=== PATIENT | male | born 1940 | race Caucasian/White ===

== ENCOUNTER 2020-11-17 15:00 | Outpatient (RCR) | payer OTHER, SELFPAY | END 2020-11-17 23:59 | disposition home or self-care (01) | LOC: ANHAUDIO 15:00 | PROVIDERS: PCP Anesthesiology; Visit Provider Anesthesiology | DX: Z46.1 Encounter for fitting and adjustment of hearing aid (principal) | CPT/HCPCS: 99199; V5014 ==

== ENCOUNTER 2021-03-30 13:30 | Outpatient (RCR) | payer SELFPAY | END 2021-03-30 23:59 | disposition home or self-care (01) | LOC: ANHAUDIO 13:30 | PROVIDERS: PCP Family Medicine; Visit Provider Family Medicine | DX: Z46.1 Encounter for fitting and adjustment of hearing aid (principal) | CPT/HCPCS: 99199 ==

== ENCOUNTER 2021-08-12 14:47 | Outpatient (RCR) | payer OTHER, SELFPAY | END 2021-08-12 23:59 | disposition home or self-care (01) | LOC: ANHAUDIO 14:47 | PROVIDERS: PCP Family Medicine; Visit Provider Family Medicine | DX: Z46.1 Encounter for fitting and adjustment of hearing aid (principal) | CPT/HCPCS: 99199 ==

== ENCOUNTER 2022-01-31 09:43 | Outpatient (RCR) | payer OTHER, SELFPAY | END 2022-01-31 23:59 | disposition home or self-care (01) | LOC: ANHAUDIO 09:43 | PROVIDERS: PCP Family Medicine; Visit Provider Family Medicine | DX: Z46.1 Encounter for fitting and adjustment of hearing aid (principal) | CPT/HCPCS: 99199 ==

== ENCOUNTER → 2023-02-02 12:54 | Outpatient (CLI) | payer OTHER, SELFPAY ==
--- NOTE | ~2023-02-02 | XR_ITS ---
XR knee LT min 4V 02/02/2023 13:14 Indication: Left knee pain Procedure: 4 views left knee Comparison: No prior studies for comparison. Findings: No fracture, subluxation or dislocation. There is a joint effusion. There is atherosclerosi s. No foreign bodies. Impression: 1: Small joint effusion. Reviewed, dictated and finalized at location L. Impression: 1: Small joint effusion.
== END ==
PROVIDERS: PCP Nurse Practitioner Family; Visit Provider Nurse Practitioner Family
DX: M25.462 Effusion, left knee (principal)
CPT/HCPCS: 73564

== ENCOUNTER → 2023-05-11 13:09 | Outpatient (CLI) | payer OTHER, SELFPAY ==
--- NOTE | ~2023-05-11 | XR_ITS ---
EXAMINATION: XR lumbar spine 2-3V DATE: 05/11/2023 13:21 INDICATION: Low back pain TECHNIQUE: Anteroposterior and lateral views of the lumbar spine, and cone-down lateral view of the l umbosacral junction were obtained. COMPARISON: 08/05/2009 FINDINGS: There are laminectomy changes from L1 through L5. Bone alignment is normal. There is no fra cture. There is moderate loss of intervertebral disc space height at L1 to, L4-5, and L5-S1. The vert ebral body heights are maintained. Small degenerative osteophytes project from the anterior endplates of multiple vertebral bodies. There is multilevel severe facet joint osteoarthritis. Calcified ather osclerosis is noted. 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 IMPRESSION: 1. Moderate to severe lumbar spondylosis and L1-L5 laminectomy without acute findings. Reviewed, dictated and finalized at location L. IMPRESSION: 1. Moderate to severe lumbar spondylosis and L1-L5 laminectomy without acute fi ndings.
== END ==
PROVIDERS: PCP Nurse Practitioner Family; Visit Provider Nurse Practitioner Family
DX: M54.50 Low back pain, unspecified (principal); M47.816 Spondylosis without myelopathy or radiculopathy, lumbar region; M96.1 Postlaminectomy syndrome, not elsewhere classified
CPT/HCPCS: 72100

== ENCOUNTER 2023-07-12 15:00 | Outpatient (RCR) | payer OTHER, SELFPAY | END 2023-07-12 23:59 | disposition home or self-care (01) | LOC: ANHAUDIO 15:00 | PROVIDERS: PCP Family Medicine; Visit Provider Family Medicine | DX: Z46.1 Encounter for fitting and adjustment of hearing aid (principal) | CPT/HCPCS: 92593; 99199 ==

== ENCOUNTER 2023-09-05 15:15 | Outpatient (RCR) | payer OTHER, SELFPAY | END 2023-09-05 23:59 | disposition home or self-care (01) | LOC: ANHAUDIO 15:15 | PROVIDERS: PCP Family Medicine; Visit Provider Family Medicine | DX: Z46.1 Encounter for fitting and adjustment of hearing aid (principal) | CPT/HCPCS: V5014 ==

== ENCOUNTER → 2023-10-17 12:37 | Outpatient (CLI) | payer OTHER, SELFPAY ==
--- NOTE | ~2023-10-17 | US_ITS ---
EXAMINATION: US soft tissue LE LT DATE: 10/17/2023 12:53 INDICATION: Posterior left knee pain. Assess for Ji's cyst. TECHNIQUE: Multiple grayscale and Doppler ultrasound images of the region of concern at the left popl iteal fossa were obtained. COMPARISON: 02/02/23 FINDINGS: Scattered nonhemodynamically significant shadowing atherosclerotic plaque along the normal caliber le ft popliteal artery which correspond to calcifications seen on the prior radiographs. No Ji's cyst or other abnormal masses or fluid collections identified at the left popliteal fossa. IMPRESSION: 1. No Ji's cyst or other abnormal masses or fluid collections at the left popliteal fossa. Reviewed, dictated and finalized at location A. 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 No Ji's cyst or other abnormal masses or fluid collections at the left po pliteal fossa.
== END ==
PROVIDERS: PCP Nurse Practitioner Family; Visit Provider Nurse Practitioner Family
DX: M25.562 Pain in left knee (principal)
CPT/HCPCS: 76882

== ENCOUNTER 2024-06-22 21:30 | Inpatient (IN) | payer OTHER, SELFPAY ==
--- NOTE | ~2024-06-22 | MR_ITS ---
EXAMINATION: MR brain/brain stem wo/w con DATE: 06/25/2024 17:02 INDICATION: fall, persistent dizziness TECHNIQUE: Magnetic resonance imaging (MRI) of the brain and brainstem was performed without and with 18 mL MultiHance intravenous contrast. Sequences included sagittal and axial T1-weighted SE, axial d iffusion-weighted FS EPI ASSET, axial T2*-weighted GRE, axial T2-weighted FLAIR Propeller, and axial T2-weighted Propeller. Postcontrast axial and coronal T1-weighted SE was obtained. Apparent diffusion coefficient (ADC) maps were created. COMPARISON: CT brain, CTA brain carotid 06/22/2024. FINDINGS: Small somewhat linear area of restricted diffusion in the [place], to the left of midline (DWI and ADC i mage ). No MRI evidence of hemorrhage or extra-axial collection. No suspicious foci of susceptib ility to suggest prior intraparenchymal hemorrhage. Moderate patchy white matter hyperintensity, like ly representing moderate small vessel ischemic disease . Mild generalized parenchymal volume loss. The basilar cisterns are patent. Flow voids are preserved . Mild ethmoid mucosal thickening, otherwise the paranasal sinuses are within normal limits. Bilatera l lens replacements. Globes and orbital contents are otherwise within normal limits. No abnormal enha ncement. IMPRESSION: Small focal acute infarct in the [place]. Reviewed, dictated and finalized at location K.
--- NOTE | ~2024-06-22 | CT_ITS ---
EXAMINATION: CT cervical spine wo con DATE: 06/22/2024 22:58 INDICATION: Neck pain after fall TECHNIQUE: Computed tomography (CT) of the cervical spine was performed without intravenous contrast. The dose-length product was 435 mGy-cm. Automated exposure control and iterative reconstruction tech nique were employed. COMPARISON: None FINDINGS: Craniovertebral junction normal. Vertebral body heights are maintained. There is disc narro wing at C3-4 with retrolisthesis. There is disc narrowing at C6-7. There is mild multilevel uncinate and facet hypertrophy. Odontoid process is normal. No evidence for perched facet. No paraspinal soft tissue abnormality. Lung apices are normal. No acute fracture or traumatic malalignment. IMPRESSION: 1. No acute abnormality of the cervical spine. 2: Severe cervical spondylosis. Reviewed, dictated and finalized at location B.
--- NOTE | ~2024-06-22 | CT_ITS ---
EXAMINATION: CT brain wo con DATE: 06/22/2024 22:57 INDICATION: Status post fall. Patient on blood thinners. TECHNIQUE: Computed tomography (CT) of the head was performed without intravenous contrast. The dose- length product was 681.00 mGy-cm. Automated exposure control and iterative reconstruction technique w ere employed. COMPARISON: None FINDINGS: Generalized atrophy. There are scattered severe periventricular and subcortical white matte r changes, most likely related to small vessel ischemic disease (microangiopathy). No ventriculomegal y or midline shift. Basilar cisterns are patent. Paranasal sinuses and mastoids are pneumatized. No d epressed skull fractures. Midline sagittal images are unremarkable. IMPRESSION: 1. No acute intracranial abnormality. 2: Chronic age-related findings. Reviewed, dictated and finalized at location B.
--- NOTE | ~2024-06-22 | CT_ITS ---
EXAMINATION: CTA brain carotid DATE: 06/23/2024 07:34 CDT INDICATION: Positional ataxia. Head trauma. Patient on aliquots. TECHNIQUE: Computed tomographic angiography (CTA) of the head was performed without and with 100 mL O mnipaque-350 intravenous contrast. CTA of the neck was performed with intravenous contrast. The dose- length product was 1192.62 mGy-cm. Maximum intensity projection and volume rendered 3D-reconstruction s were created by the technologist on a separate workstation. COMPARISON: No prior studies for comparison. . FINDINGS: HEAD CTA: Normal intracranial arteries without significant stenosis, occlusion or aneurysm. Dominant left vertebral artery. NECK CTA: There is atherosclerosis of the common carotid and proximal internal carotid arteries. No s ignificant stenosis or occlusion. There is 43% stenosis of the proximal right internal carotid artery relative to normal distal artery lumen diameter (NASCET criteria). There is 9% stenosis of the proximal left internal carotid artery r elative to normal distal artery lumen diameter. No cervical lymphadenopathy. No abnormality of the mu cosal space. Lung apices are unremarkable. IMPRESSION: 1: No significant vascular abnormality of the head or neck. Reviewed, dictated and finalized at location B.
[2024-06-22 21:42] VITALS: BP 167/85; PULSE 68; RESP 20; TEMP 36.6; O2SAT 97
[2024-06-22] MEDS: ONDANSETRON INJ 4 MG/2 ML VIAL IV PUSH (23:33)
[2024-06-22] MEDS: LACTATED RINGERS 1,000 ML 999 ML IV CONT (23:37)
[2024-06-22] MEDS: MECLIZINE HCL 25 MG TABLET PO (23:38)
[2024-06-22 23:40] LABS: Glucose Point of Care 187 mg/dl (65-105)
[2024-06-22 23:40] LABS: Estimated CRCL calculation 46 ml/min; Estimated Glomerular Filt Rate > 60
[2024-06-23] VITALS (10 sets, daily range): BP systolic 107–140; BP diastolic 61–81; PULSE 58–76; RESP 16–22; TEMP 36.2–36.6; O2SAT 94–100
[2024-06-23 00:18] LABS: Basophils Absolute Auto 0.1 K/mm3 (0.0-0.1); Basophils Percent Auto 0.7 % (0.2-1.2); Eosinophils Absolute Auto 0.2 K/mm3 (0-0.3); Eosinophils Percent Auto 2.1 % (0-4.4); Hematocrit 38.3 % (42.0-52.0); Hemoglobin 12.8 g/dL (14.0-18.0); Immature Granulocyte Absolute 0.05 K/mm3 (0.00-0.031); Immature Granulocyte Percent A 0.5 % (0-0.5); Lymphocytes Absolute Auto 2.58 K/mm3 (0.9-3.2); Lymphocytes Percent Auto 26.7 % (18.3-44.2); Mean Corpuscular HGB Conc 33.4 g/dl (32-36); Mean Corpuscular Hemoglobin 31.1 pg (26-34); Mean Platelet Volume 12.2 fl (7.4-10.4); Monocytes Absolute Auto 1.1 K/mm3 (0.1-0.6); Monocytes Percent Auto 11.5 % (2.6-8.5); Neutrophils Absolute Auto 5.6 K/mm3 (1.3-6.7); Neutrophils Percent Auto 58.5 % (45.5-73.1); Platelet Count Result 192 k/mm3 (150-375); Red Blood Count 4.12 M/mm3 (4.6-6.20); Red Cell Distribution Width 13.2 % (11.5-14.5); White Blood Count 9.7 K/mm3 (4.5-10.0)
[2024-06-23 00:28] LABS: Anion Gap 13 mmol/L (4-12); Blood Urea Nitrogen 27 mg/dL (9-20); Calcium 9.2 mg/dL (8.4-10.2); Carbon Dioxide 24 mmol/L (22-30); Chloride 99 mmol/L (98-107); Estimated CRCL calculation 50 ml/min; Estimated Glomerular Filt Rate > 60; Glucose 174 mg/dL (65-110); Potassium 3.2 mmol/L (3.4-5.0); Sodium 136 mmol/L (137-145)
[2024-06-23 00:29] LABS: INR 1.4; Prothrombin Time 18.1 Seconds (11.1-14.7)
[2024-06-23 00:30] LABS: Partial Thromboplastin Time 29.9 Seconds (22.3-36.8)
[2024-06-23 00:39] LABS: Troponin I < 0.012 ng/mL (0.000-0.034)
--- NOTE | 2024-06-23 00:46 | ECG_ITS ---
Test Date: 2024-06-23 00:05:56 Measurements Intervals [place] Rate: 77 P: 0 DC: 0 QRS: 29 QRSD: 98 T: 58 QT: 395 QTc: 448 Interpretive Statements ATRIAL FIBRILLATION LOW QRS VOLTAGE IN LIMB LEADS ST-T WAVE ABNORMALITY IN ANTEROLATERAL LEADS- CONSIDER ISCHEMIA BASELINE ARTIFACT- I, II, III, AVL, AVF ABNORMAL ECG No previous ECG available for comparison Electronically Signed On 06-23-2024 09:07:16 CDT by Laith Wynn D.O.
--- NOTE | 2024-06-23 00:50 | ED.FALL ---
HPI - Fall General Chief Complaint: Fall Stated Complaint: Fall Time Seen by Provider: 06/22/24 21:55 History of Present Illness HPI Narrative: This is an 84-year-old male with past medical history including atrial fibrillation on Xarelto, hypertension, hyperlipidemia. Today patient presents to the ED for evaluation after a fall at ground level height with head trauma on concrete. He states he did not lose consciousness but was feeling extremely dizzy prior to the fall and thinks that is what caused him to trip over a step in his garage. He landed on the ground hit his head. Was able to get up with some assistance but called EMS for transport. On initial encounter patient states that he has a headache severe vertiginous symptoms especially when looking to the right. He states he sometimes gets dizzy at baseline but this is the worst he has ever experienced. States that was onset prior to the fall today. Has been taking his Xarelto without difficulty and no other recent injuries, illnesses, medication changes. Did have recent primary care provider visit where had some labs workup and urinalysis for concerns of worsening fatigue over the last few weeks and anemia. Patient presently denies any vision changes, abdominal pain, back pain, chest pain, shortness a breath, weakness or fatigue. He states he feels extremely dizzy and nauseous and has vomited several times with retching. Nausea vomiting occurred after the fall. Related Data Home Medications Medication Instructions Recorded Confirmed hydrochlorothiazide 25 mg tablet 25 mg PO DAILY 02/10/21 06/18/24 multivitamin 1 tablet PO DAILY 02/10/21 06/18/24 rivaroxaban 20 mg tablet (Xarelto) 20 mg PO DAILY 02/10/21 06/18/24 blood sugar diagnostic (Blood 06/08/21 06/18/24 Glucose Test strips) blood-glucose meter 06/08/21 06/18/24 lancets 31 gauge 06/08/21 06/18/24 atorvastatin 40 mg tablet 40 mg PO DAILY 09/07/21 06/18/24 ubidecarenone-omega 3-vit E 25 1 cap PO DAILY 01/25/22 06/18/24 mg-150 (90-60) mg-200 unit capsule (Co [id number] E-Fish Oil) cholecalciferol (vitamin D3) 25 25 mcg PO DAILY 07/25/22 06/18/24 mcg (1,000 unit) capsule ezetimibe 10 mg tablet 10 mg PO DAILY 05/11/23 06/18/24 lisinopril 40 mg tablet mg PO DAILY 03/21/24 06/18/24 Allergies Allergy/AdvReac Type Severity Reaction Status Date / Time Sulfa (Sulfonamide AdvReac Mild rash Verified 04/30/24 07:59 Antibiotics) Review of Systems Review of Systems: As reviewed above in HPI [facility] Past Medical History Medical History Atrial fib/flutter, transient BMI 28.0-28.9,adult Chronic fatigue Elevated TSH Eustachian tube dysfunction Hyperlipidemia Hypertension Low Back Pain Otitis media Type 2 diabetes mellitus without complications Surgical History Surgical History History of back surgery History of hip surgery History of laparoscopic appendectomy History of tonsillectomy and adenoidectomy Family History Family History Father , cancer Multiple myeloma Mother Dementia Cancer Sibling , cancer No problems noted. Sibling No problems noted. Social History Social History Smoking status: Never smoker Tobacco type: cigarettes Second hand tobacco smoke exposure: Yes Alcohol intake: current Substance use: never Substance use type: does not use Do You Feel Safe in your Home?: Yes Lack of Transportation: No Lack of Food: Never True Current Housing: I Have Housing Concerned About Future Housing: No Difficulty Paying Gas/Electric Bills: No Difficulty Paying for Meds: No Currently Unemployed: No Education: Trade/Vocational Certificate Diff
[2024-06-23 03:02] LABS: Troponin I < 0.012 ng/mL (0.000-0.034)
--- NOTE | 2024-06-23 03:34 | ECG_ITS ---
Test Date: 2024-06-23 03:34:41 Measurements Intervals [place] Rate: 83 P: 0 MT: 0 QRS: 3 QRSD: 94 T: 64 QT: 417 QTc: 490 Interpretive Statements ATRIAL FIBRILLATION ST-T WAVE ABNORMALITY IN ANTEROLATERAL LEADS- CONSIDER ISCHEMIA ABNORMAL ECG Compared to ECG 06/23/2024 00:05:56 NO SIGNIFICANT CHANGE Electronically Signed On 06-23-2024 09:14:13 CDT by Laith Wynn D.O.
[2024-06-23] MEDS: diazePAM INJ (*CRX) 10 MG/2 ML SYRINGE 2.5 MG IV PUSH ×3 (06:13→20:06)
[2024-06-23] MEDS: POTASSIUM CHLORIDE INJ 40 MEQ in SODIUM CHLORIDE 0.9% IV 500 ML 130 MEQ IVPB (07:37)
--- NOTE | 2024-06-23 13:17 | ADMGEN ---
This patient, Juan M Jimenez, was admitted to 3 [facility] Surg Room 323-01. Patient/family oriented to hospital policies and general routines including ID bracelet, bed and alarms, visiting hours, pain management, procedures, bathroom and other care routines, personal items, smoking policy, room service/diet, and visiting hours. Information on how to activate the Rapid Response Team has been discussed. Patient/Family are encouraged to report perceived risks to care and to ask questions if they do not understand what they are told or what they should do.
--- NOTE | 2024-06-23 15:37 | PM.IMHP ---
H&P: HPI History of Present Illness Date/Time: 06/23/24 15:37 Chief Complaint: Fall Narrative: 84yo male with AFib on Xarelto, HTN and HLD here after sustaining a fall. Patient takes Xarelto but not on ASA or plavix. Patient has had cough and cold symptoms recently and has been taking Delsum up until the day of admission. Patient was celebrating his birthday and he did have 1 alcoholic drink. Later in the day while walking up a few steps from his garage to his house, he missed a step and fell backwards striking the back of his head. Did not lose consciousness. He was able to be helped up. He denies any chest pain, shortness a breath, palpitations or dizziness prior to the event. Does have left knee chronic pain and favors this leg. Family also state patient has an unsteady gait and uses a cane at times. No recent changes in medications. No other new [id number]-nic-zdvauva medications. He has been having fatigue recently and his primary care doctor has started an evaluation for this. He was feeling well prior to the fall. His only complaint from a review of systems standpoint was a mild lingering cough that was non productive. After fall, patient denies headache or vision changes. He does feel dizziness he describes as lightheadedness but denies room spinning dizziness. He has been nauseous with vomiting. The nausea and vomiting is worse with movement. Because of the fall with dizziness, patient contacted EMS and was brought to the emergency room for evaluation In the ED, patient was hemodynamically stable. Hgb 12.8 otherwise CBC normal. INR 1.4. Sodium 136 and potassium 3.2. BUN 27 with Cr 1.0. Troponin negative. CTA of the head and neck showing no significant vascular abnormalities. CT cervical spine showing no acute abnormalities. CT head also showing no acute abnormalities. Recent UCx (06/18/24) was negative. EKG showing AFib with ST-T wave changes anterolateral leads. Repeat EKG showing no change. He was treated with meclizine, LR, Zofran and Valium., Potassium was replaced. He was admitted for further care. Review of Systems Review of Systems: All systems reviewed & are unremarkable except as noted in HPI and below PMFSH Past Medical History Medical History Atrial fib/flutter, transient BMI 28.0-28.9,adult Chronic fatigue Elevated TSH Eustachian tube dysfunction Hyperlipidemia Hypertension Low Back Pain Otitis media Type 2 diabetes mellitus without complications Surgical History Surgical History History of back surgery History of hip surgery History of laparoscopic appendectomy History of tonsillectomy and adenoidectomy Family History Family History Father , cancer Multiple myeloma Mother Dementia Cancer Sibling , cancer No problems noted. Sibling No problems noted. Social History Social History (Updated 06/23/24 @ 16:41 by Ravi Barry MD) Social History: Smoked up to 3ppd x 30+ years but quit 35yrs ago. Rare alcohol use Lives alone Code status - DNR Surrogate decision makers - his 2 dtrs Smoking status: Former smoker Tobacco type: cigarettes Second hand tobacco smoke exposure: Yes Alcohol intake: never Substance use: never Substance use type: does not use Do You Feel Safe in your Home?: Yes Lack of Transportation: No Lack of Food: Never True Current Housing: I Have Housing Concerned About Future Housing: No Difficulty Paying Gas/Electric Bills: No Difficulty Paying for Meds: No Currently Unemployed: No Education: Don't Know Difficulty w/ Childcare or Family Care: No Living arrangements: alone Occupation/Education: retired 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
[2024-06-23] MEDS: METOPROLOL TARTRATE 25 MG TABLET PO (20:06)
[2024-06-23 20:32] LABS: Glucose Point of Care 180 mg/dl (65-105)
[2024-06-23] MEDS: MECLIZINE HCL 25 MG TABLET PO (21:04)
[2024-06-24] VITALS (10 sets, daily range): BP systolic 136–169; BP diastolic 61–84; PULSE 55–111; RESP 12–17; TEMP 36.1–37.1; O2SAT 92–95
[2024-06-24] MEDS: diazePAM INJ (*CRX) 10 MG/2 ML SYRINGE 2.5 MG IV PUSH ×2 (03:44→11:42)
[2024-06-24] MEDS: LEVOTHYROXINE SODIUM 50 MCG TABLET PO (05:45)
--- NOTE | 2024-06-24 06:00 | ECHO_ITS ---
Patient Info Name: Juan M Jimenez Age: 84 years : 1940 Gender: Male Ht: 69 in Wt: 189 lbs BSA: 2.06 m2 HR: 61 bpm BP: 169 / 72 mmHg Heart Rhythm: Atrial Fibrillation Technical Quality: Fair Exam Date: 06/24/2024 9:54 AM Exam Location: Echo Lab Patient Status: Inpatient Admit Date: 06/23/2024 Staff Ordering Physician: Teo Reddy MD Clinical Director: Maurisio Hudson [facility] Attending Provider: Cesilia Cox DO Referring Physician: Maureen HARRISON; Exam Type: CA echo doppler color flow Study Info Indications I48.1 - Persistent atrial fibrillation - ST Depression on ECG Complete two-dimensional, color flow and Doppler transthoracic echocardiogram is performed. Summary 1. Complete two-dimensional, color flow and Doppler transthoracic echocardiogram is performed. 2. Left ventricular chamber dimension is normal. 3. Left ventricular systolic function is normal, estimated at 60-65%. 4. The left ventricular diastolic function is normal. 5. E/e' 8 is minimally elevated. 6. Atrial fibrillation. 7. Left atrial chamber dimension is severely enlarged. 8. Right atrial chamber dimension is severely enlarged. 9. There is moderate aortic valve sclerosis. 10. There is mild aortic valve stenosis with a peak velocity of 153 cm/s, mean gradient of 4 mmHg, and aortic valve area of 1.5 cm2. 11. The mitral valve has moderately calcified annulus. 12. There is mild to moderate mitral valve regurgitation. 13. There is mild to moderate tricuspid valve regurgitation. 14. No pulmonary hypertension, estimated pulmonary arterial systolic pressure is 37 mmHg. 15. There is trace pulmonic regurgitation. Left Ventricle E/e' 8 is minimally elevated. Atrial fibrillation. Left ventricular chamber dimension is normal. Left ventricular systolic function is normal, estimated at 60-65%. The left ventricular diastolic function is normal. Right Ventricle Right ventricular chamber dimension is normal. Right ventricular systolic function is normal. Left Atria Left atrial chamber dimension is severely enlarged. Right Atria Right atrial chamber dimension is severely enlarged. Aortic Valve The aortic valve is trileaflet. There is moderate aortic valve sclerosis. There is mild aortic valve stenosis with a peak velocity of 153 cm/s, mean gradient of 4 mmHg, and aortic valve area of 1.5 cm2. There is no aortic valve regurgitation. Pulmonic Valve There is trace pulmonic regurgitation. Mitral Valve The mitral valve has moderately calcified annulus. There is no mitral valve stenosis. There is mild to moderate mitral valve regurgitation. Tricuspid Valve There is mild to moderate tricuspid valve regurgitation. No pulmonary hypertension, estimated pulmonary arterial systolic pressure is 37 mmHg. Pericardium/Pleural There is no pericardial effusion. Inferior Vena Cava Normal inferior vena cava with >50% collapse upon inspiration consistent with normal right atrial pressure, 5 mmHg. Aorta The aortic root size at the sinus of Valsalva is normal. Left Ventricular Outflow Tract Name Value Normal LVOT 2D LVOT Diameter 2.1 cm LVOT Doppler LVOT Peak Gradient 2 mmHg LVOT Mean Gr
[2024-06-24 06:30] LABS: Hematocrit 38.2 % (42.0-52.0); Immature Platelet Fraction Pct 4.8 % (0.9-11.2); Mean Corpuscular Hemoglobin 31.8 pg (26-34); Mean Corpuscular Volume 93.4 fl (80-100); Mean Platelet Volume 10.6 fl (7.4-10.4); Platelet Count Result 142 k/mm3 (150-375); Red Blood Count 4.09 M/mm3 (4.6-6.20); Red Cell Distribution Width 13.2 % (11.5-14.5)
[2024-06-24 06:40] LABS: Alanine Aminotransferase 12 U/L (6-50); Albumin Level 3.8 g/dL (3.5-5.1); Alkaline Phosphatase 66 U/L (38-126); Anion Gap 9 mmol/L (4-12); Aspartate Amino Transferase 31 U/L (17-59); Bilirubin,Total 1.1 mg/dL (0.2-1.3); Blood Urea Nitrogen 21 mg/dL (9-20); Calcium 9.1 mg/dL (8.4-10.2); Carbon Dioxide 28 mmol/L (22-30); Chloride 99 mmol/L (98-107); Creatine Kinase 57 U/L (55-170); Estimated CRCL calculation 62 ml/min; Estimated Glomerular Filt Rate > 60; Glucose 152 mg/dL (65-110); Potassium 3.8 mmol/L (3.4-5.0); Sodium 136 mmol/L (137-145)
[2024-06-24 08:14] LABS: Glucose Point of Care 162 mg/dl (65-105)
[2024-06-24] MEDS: METOPROLOL TARTRATE 25 MG TABLET PO ×2 (08:55→19:55)
[2024-06-24] MEDS: CHOLECALCIFEROL 1,000 UNITS TABLET 1000 UNITS PO (08:55)
[2024-06-24] MEDS: EZETIMIBE 10 MG TABLET PO (08:55)
[2024-06-24] MEDS: MULTIVITAMINS THERAPEUTIC TAB (*BKC) 1 TABLET PO (08:55)
[2024-06-24] MEDS: FERROUS SULFATE 325 MG TABLET DR PO (08:55)
[2024-06-24] MEDS: ATORVASTATIN 40 MG TABLET PO (08:55)
[2024-06-24 11:46] LABS: Glucose Point of Care 174 mg/dl (65-105)
--- NOTE | 2024-06-24 12:29 | PM.IMPN ---
Progress Note: A&P Assessment and Plan (1) Fall: Code(s): W19.XXXA - Unspecified fall, initial encounter Status: Acute Assessment and Plan: Patient had a fall resulting in a closed head injury and probably concussion with the dizziness and nausea. CT head showing no acute abnormalities. CTA of the head and neck showing no significant vascular abnormalities. CT cervical spine showing no acute abnormalities. Labs are unrevealing. Recent B12, folate normal. TSH mildly elevated at 5.77. VitD low at 21. Echo showing EF 60-65%, normal diastolic fxn, Biatrial enlargement, mild , mild-mod TR/MR. Suspect patient with chronic unsteady gait made worse with cough medication and alcohol. Patient on Xarelto at home. Monitor for worsening symptoms with neuro checks PT/OT. (2) CHI (closed head injury): Code(s): S09.90XA - Unspecified injury of head, initial encounter Status: Acute Assessment and Plan: As above. (3) Dizzy: Code(s): R42 - Dizziness and giddiness Status: Acute Assessment and Plan: Patient complaining of lightheadedness. He has Valium as needed. Related to the fall Better today As above (4) Intractable nausea and vomiting: Code(s): R11.2 - Nausea with vomiting, unspecified Status: Acute Assessment and Plan: Patient with n/v worse with movement. Was able to have patient roll to his side and he tolerated this well. Zofran prn Improved. Continue to follow Add supplements (5) Atrial fibrillation: Qualifiers: Atrial fibrillation type: longstanding persistent Qualified Code(s): I48.11 - Longstanding persistent atrial fibrillation Code(s): I48.91 - Unspecified atrial fibrillation Status: Acute Assessment and Plan: Patient with chronic AFib. EKG showing AFib with ST-T wave changes anterolateral leads. Repeat EKG showing no change. Echo as above Placed on tele showing controlled heart rate with occasional 2sec pause. Continue metoprolol. Continue to hold Xarelto but will resume tomorrow if remains stable. (6) Hypertension: Qualifiers: Hypertension type: unspecified Qualified Code(s): I10 - Essential (primary) hypertension Code(s): I10 - Essential (primary) hypertension Status: Acute Assessment and Plan: BP elevated at times but otherwise has been well controlled. Consider transient HoTN as the etiology of his fall. BUN higher a few days ago (BUN/Cr >20) so may also be dehydrated We resumed metoprolol at lower dose but held lisinopril and HCTZ. Received a liter of fluid in the ED BUN trending down. Add back lisinopril. (7) Type 2 diabetes mellitus without complications: Code(s): E11.9 - Type 2 diabetes mellitus without complications Status: Acute Assessment and Plan: A1c 7.4%. The patient's blood glucose was reviewed on 06/24 Glucose remains reasonably well controlled. Continue AccuCheks covering with sliding scale. Hypoglycemia protocol available as needed. Continue to monitor. Holding metformin and dapagliflozin. Plan DVT prophylaxis - SCDs Code status - DNR per patient wishes; family in the room support his decision Subjective Date/time seen: 06/24/24 12:29 Interval history: 84yo male with AFib on Xarelto, HTN and HLD here after sustaining a fall. Dizziness is better. Nausea improved. Ate okay this morning but not much since has decreased appeitie. Exam Narrative: AF 96.9 169/72 64 13 95%ra Gen - NARD Chest - lungs clear anteriorly CV - irregularly irregular. Tele showing occasional up to 2 sec pauses. Abd - Soft, NT/ND, Positive BS Ext - No pedal edema Psych - Nml mood and affect Skin - Warm and dry Objective Data Vital Signs Vital Signs: Vital Signs - 24 hr 06/23/24 12:36 06/23/24 14:00 06/23/24 16:03 Temperature 97.9 F 97.1 F L Pulse Rate 65 61 66 Respiratory Rate 18 18 Bloo
[2024-06-24] MEDS: lisinopriL 20 MG TABLET PO (12:50)
[2024-06-24 16:43] LABS: Glucose Point of Care 165 mg/dl (65-105)
[2024-06-24 19:28] LABS: Glucose Point of Care 204 mg/dl (65-105)
[2024-06-24] MEDS: ONDANSETRON INJ 4 MG/2 ML VIAL IV PUSH (19:55)
[2024-06-25] VITALS (10 sets, daily range): BP systolic 110–152; BP diastolic 44–90; PULSE 45–86; RESP 14–20; TEMP 36.1–36.9; O2SAT 93–100
[2024-06-25] MEDS: LEVOTHYROXINE SODIUM 50 MCG TABLET PO (06:27)
[2024-06-25] MEDS: ONDANSETRON INJ 4 MG/2 ML VIAL IV PUSH ×2 (06:27→11:19)
[2024-06-25 07:39] LABS: Anion Gap 7 mmol/L (4-12); Blood Urea Nitrogen 19 mg/dL (9-20); Calcium 9.5 mg/dL (8.4-10.2); Carbon Dioxide 31 mmol/L (22-30); Chloride 99 mmol/L (98-107); Estimated CRCL calculation 56 ml/min; Estimated Glomerular Filt Rate > 60; Glucose 151 mg/dL (65-110); Potassium 3.9 mmol/L (3.4-5.0); Sodium 137 mmol/L (137-145)
[2024-06-25 07:42] LABS: Glucose Point of Care 161 mg/dl (65-105)
[2024-06-25] MEDS: FERROUS SULFATE 325 MG TABLET DR PO (08:08)
[2024-06-25] MEDS: METOPROLOL TARTRATE 25 MG TABLET PO (08:08)
[2024-06-25] MEDS: ATORVASTATIN 40 MG TABLET PO (08:08)
[2024-06-25] MEDS: lisinopriL 20 MG TABLET PO (08:08)
[2024-06-25] MEDS: MULTIVITAMINS THERAPEUTIC TAB (*BKC) 1 TABLET PO (08:08)
[2024-06-25] MEDS: EZETIMIBE 10 MG TABLET PO (08:08)
[2024-06-25] MEDS: CHOLECALCIFEROL 1,000 UNITS TABLET 1000 UNITS PO (08:08)
[2024-06-25 11:44] LABS: Glucose Point of Care 182 mg/dl (65-105)
--- NOTE | 2024-06-25 15:32 | PM.IMPN ---
Progress Note: A&P Assessment and Plan (1) Fall: Code(s): W19.XXXA - Unspecified fall, initial encounter Status: Acute Assessment and Plan: Patient had a fall resulting in a closed head injury and probably concussion with the dizziness and nausea. CT head showing no acute abnormalities. CTA of the head and neck showing no significant vascular abnormalities. CT cervical spine showing no acute abnormalities. Labs are unrevealing. Recent B12, folate normal. TSH mildly elevated at 5.77. VitD low at 21 (on replacement). Echo showing EF 60-65%, normal diastolic fxn, Biatrial enlargement, mild , mild-mod TR/MR. Suspect patient fell due to chronic unsteady gait made worse with cough medication and alcohol. Patient on Xarelto at home which is on hold now. Monitor for worsening symptoms with neuro checks PT/OT. MRI brain. Neuro consult. Check orthostatic BP. Start meclizine scheduled (2) CHI (closed head injury): Code(s): S09.90XA - Unspecified injury of head, initial encounter Status: Acute Assessment and Plan: As above. (3) Dizzy: Code(s): R42 - Dizziness and giddiness Status: Acute Assessment and Plan: Patient complaining of lightheadedness. Related to the fall As above (4) Intractable nausea and vomiting: Code(s): R11.2 - Nausea with vomiting, unspecified Status: Acute Assessment and Plan: Patient with n/v worse with movement. Was able to have patient roll to his side and he tolerated this well. Zofran prn Nausea is much improved. Continue to follow (5) Atrial fibrillation: Qualifiers: Atrial fibrillation type: longstanding persistent Qualified Code(s): I48.11 - Longstanding persistent atrial fibrillation Code(s): I48.91 - Unspecified atrial fibrillation Status: Acute Assessment and Plan: Patient with chronic AFib. EKG showing AFib with ST-T wave changes anterolateral leads. Repeat EKG showing no change. Echo as above Placed on tele showing controlled heart rate with occasional 2sec pauses. Continue metoprolol. Continue to hold Xarelto but will resume if MRI okay (6) Hypertension: Qualifiers: Hypertension type: unspecified Qualified Code(s): I10 - Essential (primary) hypertension Code(s): I10 - Essential (primary) hypertension Status: Acute Assessment and Plan: BP elevated at times but otherwise has been well controlled. Consider transient HoTN as the etiology of his fall. BUN higher a few days ago (BUN/Cr >20) so may also be dehydrated We resumed metoprolol at lower dose but held lisinopril and HCTZ. Received a liter of fluid in the ED BUN trending down. Advnace lisinopril to full dose (7) Type 2 diabetes mellitus without complications: Code(s): E11.9 - Type 2 diabetes mellitus without complications Status: Acute Assessment and Plan: A1c 7.4%. The patient's blood glucose was reviewed on 06/25 Glucose remains reasonably well controlled. Continue AccuCheks covering with sliding scale. Hypoglycemia protocol available as needed. Continue to monitor. Holding metformin and dapagliflozin. Plan DVT prophylaxis - SCDs Code status - DNR per patient wishes; family in the room support his decision Subjective Date/time seen: 06/25/24 15:32 Interval history: 84yo male with AFib on Xarelto, HTN and HLD here after sustaining a fall. Dizziness is better when flat but much worse when sitting up at the side of the bed. He is unsure if lightheaded or room-spinning sensation but feels 'shaky'. Nausea improved overall but still slight. No vision changes or headaches. No symptoms of dizziness prior to the fall. No otalgia. Exam Narrative: AF 98.4 143/83 68 18 100%ra Gen - NARD HEENT - occipital area less swollen Chest - CTA bilaterally CV - irregularly irregular. Tele showing occasional up to 2 sec pauses. Abd - Soft, NT/ND, P
[2024-06-25 17:15] LABS: Glucose Point of Care 181 mg/dl (65-105)
[2024-06-25] MEDS: MECLIZINE HCL 12.5 MG TABLET PO ×2 (17:19→20:54)
[2024-06-25 20:18] LABS: Glucose Point of Care 195 mg/dl (65-105)
[2024-06-26] VITALS (11 sets, daily range): BP systolic 92–161; BP diastolic 57–94; PULSE 64–92; RESP 16–20; TEMP 36.1–37.2; O2SAT 94–98
[2024-06-26] MEDS: LEVOTHYROXINE SODIUM 50 MCG TABLET PO (05:43)
[2024-06-26 07:45] LABS: Glucose Point of Care 129 mg/dl (65-105)
[2024-06-26] MEDS: lisinopriL 20 MG TABLET 40 MG PO (08:30)
[2024-06-26] MEDS: FERROUS SULFATE 325 MG TABLET DR PO (08:30)
[2024-06-26] MEDS: ATORVASTATIN 40 MG TABLET PO (08:30)
[2024-06-26] MEDS: EZETIMIBE 10 MG TABLET PO (08:30)
[2024-06-26] MEDS: MULTIVITAMINS THERAPEUTIC TAB (*BKC) 1 TABLET PO (08:30)
[2024-06-26] MEDS: MECLIZINE HCL 12.5 MG TABLET PO ×4 (08:30→21:23)
[2024-06-26] MEDS: METOPROLOL TARTRATE 25 MG TABLET PO ×2 (08:31→21:23)
[2024-06-26] MEDS: CHOLECALCIFEROL 1,000 UNITS TABLET 1000 UNITS PO (08:31)
[2024-06-26 11:30] LABS: Glucose Point of Care 176 mg/dl (65-105)
--- NOTE | 2024-06-26 12:12 | WPDNEURCNPN ---
Consult date: 06/26/24 HPI: Juan M Jimenez is a 84 year old male admitted to the hospital through the emergency room with ongoing history of atrial fibrillation, hypertension, hyperlipidemia, and treatment with Xarelto. Patient reportedly fell at home on the ground level resulting in the head trauma on concrete he did not become unconscious but was feeling extremely dizzy prior to the fall which caused him trip over a step in his garage. He landed on the ground hit his head was unable to get of with some dental office assistant but call the EMS for the further transport. On initial visit in the ER he was complaining of headaches, severe vertigo, particularly when looking to the right side but he also mentioned that he gets dizzy recurrent leak at home but this particular incident was worse. He has been taking Xarelto without difficulties and with no history of any other injuries. Recently has had the primary care visit UA was slightly abnormal and he was notedly mildly anemic at the time of initial evaluation in the emergency room he gave no history of any visual difficulties abdominal pain chest pain or back pain but was feeling extremely dizzy and nauseous. His medications included hydrochlorothiazide 25mg daily rivaroxaban 20mg daily atorvastatin 40mg daily ease at my 10mg daily and lisinopril 40mg daily he is reportedly allergic to sulfa he has history of back surgery hip surgery appendectomy and tonsillectomy adenoidectomy. He is never a smoker currently alcohol intake is none initial exam in the emergency room was documented as without any appreciated Pastrana nystagmus symmetrical in sent [facility] Past Medical History Medical History Atrial fib/flutter, transient BMI 28.0-28.9,adult Chronic fatigue Elevated TSH Eustachian tube dysfunction Hyperlipidemia Hypertension Low Back Pain Otitis media Type 2 diabetes mellitus without complications Surgical History Surgical History History of back surgery History of hip surgery History of laparoscopic appendectomy History of tonsillectomy and adenoidectomy Family History Family History Father , cancer Multiple myeloma Mother Dementia Cancer Sibling , cancer No problems noted. Sibling No problems noted. Social History Social History (Updated 06/23/24 @ 16:41 by Ravi Barry MD) Social History: Smoked up to 3ppd x 30+ years but quit 35yrs ago. Rare alcohol use Lives alone Code status - DNR Surrogate decision makers - his 2 dtrs Smoking status: Former smoker Tobacco type: cigarettes Second hand tobacco smoke exposure: Yes Alcohol intake: never Substance use: never Substance use type: does not use Do You Feel Safe in your Home?: Yes Lack of Transportation: No Lack of Food: Never True Current Housing: I Have Housing Concerned About Future Housing: No Difficulty Paying Gas/Electric Bills: No Difficulty Paying for Meds: No Currently Unemployed: No Education: Don't Know Difficulty w/ Childcare or Family Care: No Living arrangements: alone Occupation/Education: retired 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
--- NOTE | 2024-06-26 12:17 | WPDNEURCNPN ---
Assessment and Plan Assessment and plan (1) CHI (closed head injury): Code(s): S09.90XA - Unspecified injury of head, initial encounter Status: Acute (2) Atrial fibrillation: Qualifiers: Atrial fibrillation type: longstanding persistent Qualified Code(s): I48.11 - Longstanding persistent atrial fibrillation Code(s): I48.91 - Unspecified atrial fibrillation Status: Acute (3) Orthostatic dizziness: Code(s): R42 - Dizziness and giddiness Status: Acute (4) Autonomic neuropathy: Code(s): G90.9 - Disorder of the autonomic nervous system, unspecified Status: Acute Plan 1. Diabetes mellitus with diabetic autonomic neuropathy with orthostatic dizziness and recurrent falls 2. 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 Ongoing occult he is living at home without assistance even with the rehab will be difficult long discussion with him as well his daughter that we are dealing with the autonomic neuropathy with resultant recurrent fall he will better off staying in the wheelchair have assistance to move out of the bed or while he is in the hospital we can monitor the blood pressure to document if any significant orthostatic fall see if we can try the medication such as Florinef or midodrineand during that stay he will definitely benefit from the rehab according to orthostatic symptomatology. 3. Long discussion was made with the patient's daughter as well as with the patient. Consult date: 06/26/24 HPI: Juan M Jimenez is a 84 year old male admitted to the hospital through the emergency room with past medical history of atrial fibrillation for which patient is receiving Xarelto, hypertension, hyperlipidemia, patient was brought to the ER subsequent to a fall at ground level with head trauma to the concrete floor, he did not become unconscious but was feeling extremely dizzy which resulted him in fall to the floor of the garage he was able to get up with some assistance and the EMS arrived to the scene on initial evaluation in the ER was complaining of severe vertiginous dizziness and headache and was looking to the right side but he also mention that he has the dizziness at a baseline this was worse this particular time. He has been taking his Xarelto without difficulties and gave no history of any other injuries and at the time of evaluation in the ER he was not complaining of any visual difficulties, his medications include hydrochlorothiazide 25mg daily, rivaroxaban 20mg daily, atorvastatin 40mg daily, ease that he might be 10mg daily, and lisinopril 40mg daily, is allergic to sulfa and his past history is consistent with transient atrial fib or flutter, hypertension, and type 2 diabetes mellitus in addition to the back and hip surgery. Is currently alcohol intaker, initial neuro exam in the ER was grossly nonfocal. With white blood pressure of 167/85, his echocardiogram is compatible with ejection fraction of 60 to 65%, with atrial fibrillation, severely enlarged left atrial chamber, moderate aortic valve sclerosis with mild stenosis and moderately calcified mitral valve annulus in addition to mild to moderate mitral valve regurgitation as well. His MRI of the brain consistent with a very small focal acute infarct in the [place], with negative CT scan of the head for the bleed, cervical spine with severe cervical spondylosis and negative head and neck CTA PMFSH Past Medical History Medical History Atrial fib/flutter, transient BMI 28.0-28.9,adult Chronic fatigue Elevated TSH Eustachian tube dysfunction Hyperlipidemia Hypertension Low Back Pain Otitis media Type 2 diabetes mellitus without complications Surgical History Surgical History History of back surgery History of hip surgery History of laparoscopic ap
--- NOTE | 2024-06-26 12:30 | PM.IMPN ---
Progress Note: A&P Assessment and Plan (1) Fall: Code(s): W19.XXXA - Unspecified fall, initial encounter Status: Acute Assessment and Plan: Patient had a fall resulting in a closed head injury and probably concussion with the dizziness and nausea. CT head showing no acute abnormalities. CTA of the head and neck showing no significant vascular abnormalities. CT cervical spine showing no acute abnormalities. Labs are unrevealing. Recent B12, folate normal. TSH mildly elevated at 5.77. VitD low at 21 (on replacement). Echo showing EF 60-65%, normal diastolic function, Biatrial enlargement, mild , mild-mod TR/MR. Suspect patient fell due to chronic unsteady gait made worse with cough medication and alcohol. Patient on Xarelto at home which is on hold now. MRI shows shows small infarct in [place] continue asa, xarelto and statin but symptoms appear related to DM neuropathy. Pt will need a trial of florinef as per discussion with Neurology MD (2) CHI (closed head injury): Code(s): S09.90XA - Unspecified injury of head, initial encounter Status: Acute Assessment and Plan: As above. (3) Dizzy: Code(s): R42 - Dizziness and giddiness Status: Acute Assessment and Plan: Patient complaining of lightheadedness. (4) Intractable nausea and vomiting: Code(s): R11.2 - Nausea with vomiting, unspecified Status: Acute Assessment and Plan: Patient with n/v worse with movement. Was able to have patient roll to his side and he tolerated this well. Zofran prn (5) Atrial fibrillation: Qualifiers: Atrial fibrillation type: longstanding persistent Qualified Code(s): I48.11 - Longstanding persistent atrial fibrillation Code(s): I48.91 - Unspecified atrial fibrillation Status: Acute Assessment and Plan: Patient with chronic AFib. EKG showing AFib with ST-T wave changes anterolateral leads. Repeat EKG showing no change. Echo as above Placed on tele showing controlled heart rate with occasional 2sec pauses. Continue metoprolol. restart xarelto (6) Hypertension: Qualifiers: Hypertension type: unspecified Qualified Code(s): I10 - Essential (primary) hypertension Code(s): I10 - Essential (primary) hypertension Status: Acute Assessment and Plan: Continue lisinopril (7) Type 2 diabetes mellitus without complications: Code(s): E11.9 - Type 2 diabetes mellitus without complications Status: Acute Assessment and Plan: A1c 7.4%. The patient's blood glucose was reviewed on 06/25 Glucose remains reasonably well controlled. Continue AccuCheks covering with sliding scale. Hypoglycemia protocol available as needed. Continue to monitor. Holding metformin and dapagliflozin. Plan DVT prophylaxis - SCDs Code status - DNR per patient wishes; family in the room support his decision Subjective Date/time seen: 06/26/24 12:30 Interval history: 84yo male with AFib on Xarelto, HTN and HLD here after sustaining a fall. dizziness worse on standing MRI shows small infarct in [place] continue asa, xarelto and statin but symptoms appear related to DM neuropathy. Pt will need a trial of florinef as per discussion with Neurology MD. Pt would benefit from rehab placement but may need to use a WC retirement. Review of Systems Review of Systems: Dizziness nausea balance issues Exam Narrative: Gen - older man very anxious HEENT - occipital area less swollen Chest - CTA bilaterally CV - RRR Abd - Soft, NT/ND, Positive BS Ext - No pedal edema Neuro - no focal weakness. . Feels dizzy when sitting up Psych - Nml mood and affect Skin - Warm and dry Objective Data Vital Signs Vital Signs: Vital Signs - 24 hr 06/25/24 14:00 06/25/24 16:00 06/25/24 16:00 Temperature 36.7 C 36.4 C Pulse Rate 80 70 68 Respiratory Rate 18 18 Blood Pressure
[2024-06-26 16:42] LABS: Glucose Point of Care 267 mg/dl (65-105)
[2024-06-26] MEDS: INSULIN ASPART (*BKC) 100 UNITS/ML SUB-Q (16:52)
[2024-06-26 21:47] LABS: Glucose Point of Care 163 mg/dl (65-105)
[2024-06-27] VITALS: BP 142/75; PULSE 71; PULSE 90; RESP 18; TEMP 37.4; O2SAT 94
[2024-06-27 04:00] VITALS: BP 136/92; PULSE 72; PULSE 81; RESP 18; TEMP 36.9; O2SAT 93
[2024-06-27] MEDS: LEVOTHYROXINE SODIUM 50 MCG TABLET PO (05:45)
[2024-06-27 07:46] LABS: Glucose Point of Care 146 mg/dl (65-105)
[2024-06-27 08:00] VITALS: BP 160/90; PULSE 80; RESP 18; TEMP 36.3; O2SAT 95
[2024-06-27 08:54] VITALS: PULSE 72
[2024-06-27] MEDS: METOPROLOL TARTRATE 25 MG TABLET PO (08:54)
[2024-06-27] MEDS: EZETIMIBE 10 MG TABLET PO (08:54)
[2024-06-27] MEDS: FERROUS SULFATE 325 MG TABLET DR PO (08:54)
[2024-06-27] MEDS: MECLIZINE HCL 12.5 MG TABLET PO (08:54)
[2024-06-27] MEDS: MULTIVITAMINS THERAPEUTIC TAB (*BKC) 1 TABLET PO (08:54)
[2024-06-27] MEDS: EMPAGLIFLOZIN 25 MG TABLET BY MOUTH (08:54)
[2024-06-27] MEDS: CHOLECALCIFEROL 1,000 UNITS TABLET 1000 UNITS PO (08:55)
[2024-06-27] MEDS: ASPIRIN 81 MG CHEWABLE TABLET PO (08:55)
[2024-06-27] MEDS: FLUDROCORTISONE ACETATE 0.1 MG TABLET PO (08:55)
[2024-06-27] MEDS: ATORVASTATIN 40 MG TABLET PO (08:55)
[2024-06-27] MEDS: lisinopriL 20 MG TABLET 40 MG PO (08:55)
[2024-06-27] MEDS: RIVAROXABAN 20 MG TABLET PO (08:55)
[2024-06-27 11:22] LABS: Glucose Point of Care 218 mg/dl (65-105)
[2024-06-27 12:00] VITALS: BP 128/70; PULSE 76; RESP 18; TEMP 36.6; O2SAT 95
--- NOTE | 2024-06-27 12:25 | PM.DS ---
DS: Admitting Diagnosis Discharge Date 06/27/2024 Admitting Diagnosis 06/23/2024 DS: Discharge Diagnosis Discharge Diagnosis (1) Fall: Code(s): W19.XXXA - Unspecified fall, initial encounter Status: Acute Assessment and Plan: Patient had a fall resulting in a closed head injury and probably concussion with the dizziness and nausea. CT head showing no acute abnormalities. CTA of the head and neck showing no significant vascular abnormalities. CT cervical spine showing no acute abnormalities. Labs are unrevealing. Recent B12, folate normal. TSH mildly elevated at 5.77. VitD low at 21 (on replacement). Echo showing EF 60-65%, normal diastolic function, Biatrial enlargement, mild , mild-mod TR/MR. Suspect patient fell due to chronic unsteady gait made worse with cough medication and alcohol. Patient on Xarelto at home which is on hold now. MRI shows shows small infarct in [place] continue asa, xarelto and statin but symptoms appear related to DM autonomic neuropathy and not stroke Pt will need a trial of florinef as per discussion with Neurology MD (2) CHI (closed head injury): Code(s): S09.90XA - Unspecified injury of head, initial encounter Status: Acute Assessment and Plan: As above. (3) Dizzy: Code(s): R42 - Dizziness and giddiness Status: Acute Assessment and Plan: Patient complaining of lightheadedness. (4) Intractable nausea and vomiting: Code(s): R11.2 - Nausea with vomiting, unspecified Status: Acute Assessment and Plan: Patient with n/v worse with movement. Was able to have patient roll to his side and he tolerated this well. Zofran prn (5) Atrial fibrillation: Qualifiers: Atrial fibrillation type: longstanding persistent Qualified Code(s): I48.11 - Longstanding persistent atrial fibrillation Code(s): I48.91 - Unspecified atrial fibrillation Status: Acute Assessment and Plan: Patient with chronic AFib. EKG showing AFib with ST-T wave changes anterolateral leads. Repeat EKG showing no change. Echo as above Placed on tele showing controlled heart rate with occasional 2sec pauses. Continue metoprolol. restart xarelto (6) Hypertension: Qualifiers: Hypertension type: unspecified Qualified Code(s): I10 - Essential (primary) hypertension Code(s): I10 - Essential (primary) hypertension Status: Acute Assessment and Plan: Continue lisinopril (7) Type 2 diabetes mellitus without complications: Code(s): E11.9 - Type 2 diabetes mellitus without complications Status: Acute Assessment and Plan: A1c 7.4%. The patient's blood glucose was reviewed on 06/25 Glucose remains reasonably well controlled. Continue AccuCheks covering with sliding scale. Hypoglycemia protocol available as needed. DS: Summary Hospital Course Hospital Course: 84yo male with AFib on Xarelto, HTN and HLD here after sustaining a fall. dizziness worse on standing MRI shows small infarct in [place] continue asa, xarelto and statin but symptoms appear related to DM autonomic neuropathy and not stroke. Pt will need a trial of florinef as per discussion with Neurology MD. 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 Time Spent with Patient Time attestation: Total time spent providing and/or coordinating discharge services:48 minutes on day of dc Exam Narrative: Gen - older man very anxious HEENT - occipital area less swollen Chest - CTA bilaterally CV - RRR Abd - Soft, NT/ND, Positive BS Ext - No pedal edema Neuro - no focal weakness. . Feels dizzy when sitting up Psych - Nml mood and affect Skin - Warm and dry DS: Data Data Completed and Pending Labs on day of discharge: Labs from last 24 hours 06/27/24 06/27/24 06/26/24 11:19 07:39 20:46 POC Capillary Glucose 218 H 146 H 163 H 06/26/24
== END 2024-06-27 15:52 | DRG 73 ==
LOC: ANHED 22:21 → ANH3MEDSUR 06-23 07:33
PROVIDERS: Internal Medicine; Admitting Provider Internal Medicine; Emergency Provider Student in an Organized Health Care Education/Training Program; PCP Family Medicine; Visit Provider Family Medicine
DX: E11.43 Type 2 diabetes mellitus with diabetic autonomic (poly)neuropathy (principal); I63.9 Cerebral infarction, unspecified; I48.20 Chronic atrial fibrillation, unspecified; S09.90XA Unspecified injury of head, initial encounter; S00.03XA Contusion of scalp, initial encounter; I10 Essential (primary) hypertension; E78.5 Hyperlipidemia, unspecified; E11.9 Type 2 diabetes mellitus without complications; R42 Dizziness and giddiness; W19.XXXA Unspecified fall, initial encounter; Z79.01 Long term (current) use of anticoagulants; Z87.891 Personal history of nicotine dependence
CPT/HCPCS: 36415; 70450; 70496; 70498; 70553; 72125; 80048; 80053; 82550; 82948; 84484; 85025; 85027; 85055; 85610; 85730; 93005; 93306; 96361; 96365; 96366; 96375; 96376; 97110; 97161; 97166; 97530; 97535; 99285; A9270; A9577; G0378; J1815; J2405; J3360; J3480; J7040; J7120; Q9967

== ENCOUNTER 2024-10-14 07:52 | Emergency (ER) | payer OTHER, SELFPAY ==
--- NOTE | ~2024-10-14 | CT_ITS ---
Noncontrast CT scan of the cervical spine Technique: Multiple contiguous axial [address] images of the cervical spine were obtained and rec onstructed in 2D sagittal and coronal planes on the acquisition scanner. Dose reduction technique was used on this scan by utilizing automated exposure control, adjustment of the mA and/or kV according to patient size. The dose-length product (DLP) was 450.72 mGy-cm. Clinical History: Pain COMPARISON: 10/12/2024 Findings: No fractures or dislocations. Osseous alignment is unchanged from prior exam. Stable degen erative disc narrowing at C3-C4 and C6-C7 in particular. Stable scattered facet joint degenerative ch anges. Stable mild bilateral neural foraminal narrowing at C3-C4. Probable mild bilateral neural fora bessie narrowing at C5-C6. No prevertebral soft tissue swelling. Partially imaged bilateral pleural effusions are present, left greater than right. Impression: No fracture or subluxation of the cervical spine. Stable degenerative change. Partially imaged bilateral pleural effusions, left greater than right, probably both at least moderat e in size. Reviewed, dictated and finalized at [facility]. OND WHEEL EDGER Impression: No fracture or subluxation of the cervical spine. Stable degenerative change. Partially imaged bilateral pleural effusions, left greater than right, probably both at least moderate in size.
--- NOTE | ~2024-10-14 | CT_ITS ---
EXAMINATION: CT brain wo con DATE: 10/14/2024 08:16 INDICATION: Hematoma to the back of the head. TECHNIQUE: Computed tomography (CT) of the head was performed without intravenous contrast. The dose- length product was 605.33 mGy-cm. Automated exposure control and iterative reconstruction technique w ere employed. COMPARISON: CT dated 10/12/2024 FINDINGS: There is generalized atrophy. There are scattered severe periventricular and subcortical wh ite matter changes, most likely related to small vessel ischemic disease (microangiopathy). No ventri culomegaly or midline shift. There is intracranial atherosclerosis. There is a right parietal scalp h ematoma. No underlying skull fracture. No acute infarction, hemorrhage or mass. Paranasal sinuses and mastoids are pneumatized. IMPRESSION: 1. No acute intracranial abnormality. Reviewed, dictated and finalized at location [facility]. [facility]
[2024-10-14 07:52] VITALS: BP 139/86; PULSE 110; RESP 16; TEMP 36.4; O2SAT 96
--- NOTE | 2024-10-14 08:02 | ED.GENADULT ---
HPI - General Adult General Chief complaint: Fall Stated complaint: fall History of Present Illness HPI narrative: 84-year-old male presenting to the emergency department from a memory care unit for evaluation after having a ground level fall. Patient reportedly fell back and struck the back of his head. Patient has been having frequent falls. Patient denies any pain or complaint but does have a contusion to his posterior right scalp. No laceration. Patient does have dementia and was unaware of what caused the fall. Related Data Home Medications ?Medication ?Instructions ?Recorded ?Confirmed ?Last Taken ?Type multivitamin 1 tablet PO DAILY 02/10/21 10/05/24 Unknown History rivaroxaban 20 mg tablet (Xarelto) 20 mg PO DAILY 02/10/21 10/05/24 Unknown History atorvastatin 40 mg tablet 40 mg PO DAILY 09/07/21 10/05/24 Unknown History ubidecarenone-omega 3-vit E 25 1 cap PO DAILY 01/25/22 10/05/24 Unknown History mg-150 (90-60) mg-200 unit capsule (Co X-[id number] E-Fish Oil) cholecalciferol (vitamin D3) 25 25 mcg PO DAILY 07/25/22 10/05/24 Unknown History mcg (1,000 unit) capsule ezetimibe 10 mg tablet 10 mg PO DAILY 05/11/23 10/05/24 Unknown History metformin 500 mg tablet 500 mg PO BID 07/30/24 10/05/24 Unknown History cetirizine 10 mg tablet 10 mg PO Q12H PRN allergy symptoms 10/05/24 10/05/24 Unknown History ferrous sulfate 325 mg (65 mg 325 mg PO DAILY 10/05/24 10/05/24 Unknown History iron) tablet,delayed release hydrochlorothiazide 25 mg tablet 25 mg PO DAILY 10/05/24 10/05/24 Unknown History meclizine 12.5 mg tablet 12.5 mg PO QID PRN dizziness 10/05/24 10/05/24 Unknown History Allergies Allergy/AdvReac Type Severity Reaction Status Date / Time Sulfa (Sulfonamide Allergy Mild rash Verified 10/08/24 13:33 Antibiotics) Review of Systems Review of Systems: All systems reviewed & are unremarkable except as noted in HPI and below PMFSH Past Medical History Medical History Diabetes mellitus Cerebrovascular disease MCI (mild cognitive impairment) Ataxia Low Back Pain Eustachian tube dysfunction Chronic fatigue BMI 28.0-28.9,adult Elevated TSH Atrial fib/flutter, transient Otitis media Hypertension Hyperlipidemia Type 2 diabetes mellitus without complications Surgical History Surgical History History of tonsillectomy and adenoidectomy History of back surgery History of laparoscopic appendectomy History of hip surgery Family History Family History Father , cancer Multiple myeloma Mother Dementia Cancer Sibling , cancer No problems noted. Sibling No problems noted. Social History Social History Social History: Smoked up to 3ppd x 30+ years but quit 35yrs ago. Rare alcohol use Lives alone Code status - DNR Surrogate decision makers - his 2 dtrs Smoking status: Unknown if ever smoked Tobacco type: cigarettes Second hand tobacco smoke exposure: Yes Alcohol intake: unknown Substance use: unknown Substance use type: does not use Do You Feel Safe in your Home?: Yes Lack of Transportation: No Lack of Food: Never True Current Housing: I Have Housing Concerned About Future Housing: No Difficulty Paying Gas/Electric Bills: No Difficulty Paying for Meds: No Currently Unemployed: No Education: Don't Know Difficulty w/ Childcare or Family Care: No Living arrangements: alone Occupation/Education: retired 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 HEAD: normocephalic, posterior scalp contusion EYES: PERRLA/EOMI, conjunctivae clear. NOSE: Normal no drainage EARS:TMS clear with good light reflex. THROAT: Pharynx clear, no exudate. NECK: Supple. No adenopathy, no masses. RESPIRATORY: Airway patent, respirations nonlabored. Clear to auscultation bilaterally, no rales, rhonchi, wheezing. CARDIOVASCULAR: Regular rate and rhythm without murmurs rubs or gallops. ABDOMINAL: Soft, nontender, nondistended, normal bowel sounds MUSCULOSKELETAL: Moves all extremities. Strength/ROM intact, No edema, No calf tenderness. NEURO: Alert. Cranial nerves II through XII intact. Good gait. Good coordination SKIN: Warm, dry. Normal Color Course Vital Signs Vital signs: Vital Signs Temperature 97.6 F 10/14/24 07:52 Pulse Rate 110 H 10/14/24 07:52 Respiratory Rate 16 10/14/24 07:52 Blood Pressure 139/86 10/14/24 07:52 Pulse Oximetry 96 10/14/24 07:52 Oxygen Delivery Room Air 10/14/24 07:52 Temperature 97.6 F 10/14/24 07:52 Pulse Rate 72 10/14/24 09:27 Respiratory Rate 19 10/14/24 09:27 Blood Pressure 125/68 10/14/24 09:27 Pulse Oximetry 100 10/14/24 09:27 Oxygen Delivery Room Air 10/14/24 07:52 Medical Decision Making MDM Narrative Medical decision making narrative: 84-year-old male present to the emergency department for evaluation for head injury. Patient denies any pain or complaint. Patient had negative imaging of brain and cervical spine. Patient was updated results of his workup. Patient was discharged back to his care facility. Nursing staff was updated. Differential Diagnosis Differential Diagnosis: Subdural hematoma, subarachnoid hemorrhage, contusion, skull fracture Vital Signs Vital Signs: Vital Signs Temperature 97.6 F 10/14/24 07:52 Pulse Rate 110 H 10/14/24 07:52 Respiratory Rate 16 10/14/24 07:52 Blood Pressure 139/86 10/14/24 07:52 Pulse Oximetry 96 10/14/24 07:52 Oxygen Delivery Room Air 10/14/24 07:52 Temperature 97.6 F 10/14/24 07:52 Pulse Rate 72 10/14/24 09:27 Respiratory Rate 19 10/14/24 09:27 Blood Pressure 125/68 10/14/24 09:27 Pulse Oximetry 100 10/14/24 09:27 Oxygen Delivery Room Air 10/14/24 07:52 Imaging Data Radiologist's impression: Impressions Head CT 10/14/24 08:17 IMPRESSION: 1. No acute intracranial abnormality. Cervical Spine CT 10/14/24 08:23 Impression: No fracture or subluxation of the cervical spine. Stable degenerative change. Partially imaged bilateral pleural effusions, left greater than right, probably both at least moderate in size. Discharge Plan Discharge Clinical Impression: Contusion of head, Hematoma of scalp Patient Disposition: NH Prison/Asst Living Condition: Stable Instructions: Antibiotic Form, Head Injury (ED) Additional Instructions: Have close follow-up with your primary care physician. Patient Language: Vietnamese Prescriptions: No Action Xarelto 20 mg tablet 20 mg PO DAILY Rx Instructions: must administer with evening meal multivitamin Tablet 1 tablet PO DAILY atorvastatin 40 mg tablet 40 mg PO DAILY Co N-21-[id number] E-Fish Oil 25-150-200 mg-mg-unit capsule 1 cap PO DAILY triamcinolone acetonide 0.1 % cream 1 applic topical BID Qty: 15 0RF ezetimibe 10 mg tablet 10 mg PO DAILY metoprolol succinate 25 mg tablet extended release 24 hr 25 mg PO DAILY Qty: 90 0RF cholecalciferol (vitamin D3) 25 mcg (1,000 unit) capsule 25 mcg PO DAILY metformin 500 mg tablet 500 mg PO BID Rx Instructions: TAKE 1 TABLET BY MOUTH THREE TIMES DAILY sertraline [Zoloft] 50 mg tablet 50 mg PO DAILY Qty: 90 0RF cyclobenzaprine 10 mg tablet 10 mg PO TID PRN (Reason: muscle spasm) Qty: 20 0RF cetirizine 10 mg tablet 10 mg PO Q12H PRN (Reason: allergy symptoms) ferrous sulfate 325 mg (65 mg iron) tablet,delayed release (DR/EC) 325 mg PO DAILY hydrochlorothiazide 25 mg tablet 25 mg PO DAILY meclizine 12.5 mg tablet 12.5 mg PO QID PRN (Reason: dizziness) doxycycline hyclate 100 mg Tablet 100 mg PO Q12HR 3 Days Qty: 6 0RF quetiapine [Seroquel XR] 50 mg Tablet Extended Release 24 Hr 50 mg PO HS Qty: 30 0RF aspirin [Children's Aspirin] 81 mg Tablet,Chewable 81 mg PO DAILY@0800 Qty: 30 1RF ondansetron 4 mg tablet,disintegrating 4 mg PO Q8H PRN (Reason: nausea and vomiting) Qty: 30 0RF levothyroxine 50 mcg tablet 50 mcg PO DAILY Qty: 90 1RF dapagliflozin propanediol [Farxiga] 10 mg tablet 10 mg PO DAILY Qty: 90 0RF Follow-up/Referrals: Emeka Gunderson MD [Primary Care Provider] -
[2024-10-14 09:27] VITALS: BP 125/68; PULSE 72; RESP 19; O2SAT 100
--- OUTSIDE RECORDS SUMMARY | 2024-10-17 12:01 | XMS_ITS | Referral Summary ---
Author Organization [facility] Address [address] [address] Care Team Providers Care Medical Claims Processor Name Role Phone Unavailable Primary Care Provider Unavailabl e Source Comments [facility],non-owned Affiliates and Associated Physician Practices is amultiple site organization consisting of ambulatory clinics and hospital sitesin [place], [place], [place] and [place]. This disclosure is being madepursuant to the Care Everywhere program and may not contain all information available regarding this patient. Last updated 18.[facility] [employer] Social History Tobacco Use Types Packs/Day Years Used Date Smoking Tobacco: Never Assessed Sex and Gender Information Value Date Recorded Sex Assigned at Not on file Gender Identity Not on file Sexual Orientation Not on file Plan of Treatment Not on file
--- OUTSIDE RECORDS SUMMARY | 2024-10-17 12:01 | XMS_ITS | Clinical Summary ---
Author Organization [facility] – [place] [address] [address] Address [address] [place] [address] Care Team Providers Care Director Business Development Name Role Phone Emeka Gunderson MD Primary Care Provider Allergies Active Allergy Reactions Criticality Noted Date Comments Sulfa (Sulfonamide Antibiotics) Unknown 06/26 Medications coenzyme Q10 (CO Q-10) 100 mg capsule take 1 by Oral route once 0 0 02/09/20 16 Active Additional Information Patient not taking.Reported on 08/29/2024 metFORMIN (GLUCOPHAGE) 500 mg tablet take 1 tablet by oral route 3 times every day with morning and evening meals 0 0 12/01/19 10 Active multivitamin tablet tablet take 1 by Oral route every day 0 09/15/20 16 Active testosterone cypionate (DEPO-TESTOTERONE) 200 mg/mL injection 1 08/22/20 17 Active levothyroxine (SYNTHROID) 50 mcg tablet Take 1 tablet (50 mcg total) by mouth daily 08/10/20 23 Active rivaroxaban (Xarelto) 20 mg tabletIndications:Pa roxysmal atrial fibrillation (CMS/HCC) (HCC) TAKE 1 TABLET BY MOUTH EVERY DAY 90 tablet 3 10/17/19 24 Active hydroCHLOROthiazide (HYDRODIURIL) 25 mg tablet TAKE 1 TABLET BY MOUTH EVERY DAY 90 tablet 1 05/08/20 24 Active Additional Information Patient not taking.Reported on 08/29/2024 atorvastatin (LIPITOR) 40 mg tabletIndications:Co ronary arteriosclerosis in [place] artery,Multiple-type hyperlipidemia TAKE 1 TABLET BY MOUTH EVERY DAY 90 tablet 2 05/30/20 24 Active lisinopriL (PRINIVIL,ZESTRIL) 40 mg tablet TAKE 1 TABLET BY MOUTH EVERY DAY 90 tablet 2 05/30/20 24 Active Additional Information Patient not taking.Reported on 08/29/2024 ezetimibe (ZETIA) 10 mg tablet Take 1 tablet (10 mg total) by mouth daily 90 tablet 08/12/20 24 025 Active Farxiga 10 mg tablet Take 1 tablet (10 mg total) by mouth daily 07/30/20 24 Active ferrous sulfate 325 mg (65 mg of elemental iron) tablet Take 1 tablet (325 mg total) by mouth daily 07/30/20 24 Active metoprolol XL (TOPROL-XL) 25 mg extended release tablet Take 1 tablet (25 mg total) by mouth daily 07/30/20 24 Active ondansetron ODT (ZOFRAN-ODT) 4 mg disintegrating tablet TAKE 1 TABLET UNDER THE TONGUE EVERY 8 HOURS NEEDED FOR NAUSEA/VOMITING 06/27/20 24 Active sertraline (ZOLOFT) 50 mg tablet Take 1 tablet (50 mg total) by mouth daily 07/30/20 24 Active cholecalciferol, vitamin D3, (Vitamin D3) 1,000 unit tablet,chewable Take by mouth Active om 1-[id number]-[id number]- phytost 500 mg-500 mcg -1 mg-12.5 mg capsule Take by mouth Active aspirin 81 mg chewable tablet Take 1 tablet (81 mg total) by mouth daily 90 tablet 1 09/04/20 24 Active Active Problems Problem Noted Date Diagnosed Date Other male erectile dysfunction 12/25/2018 Other fatigue 12/25/2018 Subclavian artery stenosis, right (CMS/HCC) 10/26 PVD (peripheral vascular disease) 11/04/2017 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 Overview (12/28/2016): Mitral valve regurgitation, rheumatic Obesity with body mass index 30 or greater 02/08 Overview (12/28/2016): Obesity (BMI 30-39.9) Essential hypertension 02/09/2016 Overview (12/28/2016): Essential hypertension Chronic anticoagulation 02/09/2016 Overview (12/30/2016): Current use of residential anticoagulation Permanent atrial fibrillation (CMS/HCC) 02/09/20 16 Overview (12/30/2016): PAF (paroxysmal atrial fibrillation) History of coronary artery stent placement 04/08 Overview (12/30/2016): STATUS-POST PTCA Coronary artery disease invo lving [place] coronary artery of [place] heart without angina pectoris 02/08/2014 Overview (12/30/2016): CRNRY ATHRSCL NATVE VSSL Hyperlipidemia associated with type 2 diabetes m ellitus 02/08/2014 Overview (12/30/2016): MIXED HYPERLIPIDEMIA Rheumatic disease of mitral valve 06/10/2013 Overview (12/30/2016): Rheumatic mitral valve disease Lumbago 11/16/2010 Resolved Problems Problem Noted Date Diagnosed Date Resolved Date Rheumatic pancarditis 02/09/20162019 Overview (12/30/2016): Rheumatic heart disease Hypertension 02/08/2014 12/25/2018 Overview (12/30/2016): HYPERTENSION NOS Atrial fibrillation (CMS/HCC) 06/10/2013 07/15/2020 Overview (12/30/2016): ATRIAL FIBRILLATION Encounters Date Type Department Care Team Description 09/04/2024 Telephone [facility] Cardiology [address] [place] [address] Magda Solorzano MD 08/29/2024 8:15 AM STAFFING MGR Office Visit [facility] Medical [facility] Card[facility] [address] [place] [address] Magda Solorzano MD Coronary artery disease involving [place] coronary artery of [place] heart without angina pectoris (Primary Dx); Permanent atrial fibrillation (CMS/HCC) (HCC); Subclavian artery stenosis, right (CMS/HCC) (HCC); PVD (peripheral vascular disease) (HCC); Essential hypertension; Chronic anticoagulation; Hyperlipidemia associated with type 2 diabetes mellitus (HCC); History of coronary artery stent placement; Atherosclerosis of [place] coronary artery without angina pectoris, unspecified whether [place] or transplanted heart; Peripheral vascular disease, unspecified (HCC); Stricture, artery (CMS/HCC) (HCC); long term care administrator current use of anticoagulant therapy; Presence of coronary angioplasty implant and graft; Type 2 diabetes mellitus with other specified complication, unspecified whether terminal press operator insulin use (HCC); Essential (primary) hypertension 08/12/2024 Orders Only [facility] Medical [facility] Cardiology [address] [place] [address] Jenna Jarquin MA 08/09/2024 Telephone [facility] Cardiology [address] [place] [address] Magda Solorzano MD Med Refill from Last 3 Months Surgical History Surgery Date Site/Laterality Comments OTHER SURGICAL HISTORY 2010 : Lumbar OR, 3 surgeries total TOTAL HIP ARTHROPLASTY 2012 Right Total Hip Replacement Medical History Medical History Date Comments Hx Other Medical Erectile Dysfun ction Hx Other Medical Proteinuria Hypertension Hypertension Hx Other Medical Diabetes Type I I Family History Medical History Relation Name Comments Other Brother 3 a fib; Other Brother 4 bad heart, a fi b, ICD, of [place]; Relation Name Status Comments Brother 1 Alive Brother 2 Alive Brother 3 Brother 4 Social History Tobacco Use Types Packs/Day Years Used Date Smoking Tobacco: Former Cigarettes Q uit: 09/25/1989 Tobacco Cessation:Counseling Given: Not Answered Alcohol Use Standard Drinks/Week Comments Yes 0 (1 standard drink = 0.6 oz pur e alcohol) Sex and Gender Information Value Date Recorded Sex Assigned at Not on file Legal Sex Male 9:16 AM STAFFING MGR Gender Identity Not on file Sexual Orientation Not on file Obstetrics History Last Filed Vital Signs Vital Sign Reading Time Taken Comments Blood Pressure 132/74 08/29/2024 8:19 AM STAFFING MGR Pulse 75 08/29/2024 8:19 AM STAFFING MGR Temperature - - Respiratory Rate - - Oxygen Saturation 97% 08/29/2024 8:19 AM STAFFING MGR Inhaled Oxygen Concentration - - Weight 75.8 kg (167 lb) 08/29/2024 8:19 AM STAFFING MGR Height 175.3 cm (5' 9 ) 08/29/2024 8:19 AM STAFFING MGR Body Mass Index 24.66 08/29/2024 8:19 AM STAFFING MGR Plan of Treatment Health Maintenance Due Date Last Done Comments Albumin Creatinine Ratio, Urine 1942 Depression Screening 1942 Fall Risk Assessment 1942 Hemoglobin A1C 1942 eGFR 1942 Dilated Eye Exam 1942 Foot Exam 1942 Pneumococcal vaccine 65+ (1 of 2 - PCV) 1948 DTaP/Tdap/Td Vaccine (1 - Tdap) 1953 Hepatitis B Screening 1960 Zoster Vaccine (1 of 2) 1992 Abdominal Aortic Aneurysm (A AA) Screen 2007 Well Visit 65+ 2007 Covid-19 Vaccine (3 - 2023-2 5 season) 2024 12/14/2020, 11/12/2020 Influenza Vaccine (#1) 2024 07/12/2021, 2019 Lipid Panel 08/21/2024 08/21/2023, 09/0 02/2022, 12/23/2020, Additional history exists Procedures Procedure Name Priority Date/Time Associated Diagnosis Comments POCT LIPID PANEL Routine 08/21/2023 9:21 AM STAFFING MGR Hyperlipidemia associated with type 2 diabetes mellitus (HCC) from Last 3 Months or Most Recently Relevant to Health Maintenance Results * POCT lipid panel (08/21/2023 9:21 AM STAFFING MGR) Cholesterol, POC 103 mg/dL HDL, POC 37 mg/dL Triglycerides, POC 124 mg/dL LDL Cholesterol POC 41 mg/dL Chol/HDL Ratio, POC 1.1 Non-HDL Cholesterol, POC 66 mg/dL Cholesterol Total, POC 103 mg/dL Capillary blood 08/21/2023 9 :21 AM STAFFING MGR Kathryn Allen MD POINT OF CARE TEST ORDERABL ES Final Result from Last 3 Months or Most Recently Relevant to Health Maintenance Insurance [address] [place], [place] [id number] [facility] [address] [place] [id number] [facility] Care Teams Director Business Development Relationship Specialty Start Date End Date Emeka Gunderson MD [address] [place] [address] PCP - General Family Medicine 09/24/24
--- OUTSIDE RECORDS SUMMARY | 2024-10-17 12:01 | XMS_ITS | Continuity of Care Document ---
Author Organization [facility] Address [address] [place] [address] Phone Care Team Providers Care University Teacher Name Role Phone Ann OD, Maykel Unavailable Unavailable Procedures Procedure Date Office/outpatient Visit, Est Eye Exam Established Pt Office/outpatient Visit, Est Dilated Retinal Exam W Interpretation Ju Frame - Up To $111 Progressive Lens, Glass Lens-Index>1.66Plas;>1.80Glas 9 Tint Photochromatic, Glass Eye Exam & Treatment Refraction Eye Exam, New Patient Advance Directives Directive Yes / No Effective Date File Name No Information Encounters Encounter Description Practice Location Reason(s) For Visit Diagnoses Date Provider Providers Copied on Encounter Office/outpat ient Visit, Est [facility] with [facility], [address], [place], [place], [id number], [place] tel:[phone] [facility] No Information Mar-0 9-201 0 Ann OD Maykel. [address] , [address], [place], [address], [place]. tel:[phone] Merged with [facility], [address], [place], [place], [id number], [place] tel:[phone] [facility] No Information Marlo-0 2-201 0 Ann OD Maykel. [address] , [address], [place], [address], [place]. tel:[phone] Office/outpat ient Visit, Est [facility], [address], [place], [place], [id number], [place] tel:[phone] [facility] No Information Feb-2 9-201 0 Jaqueline Miller [address] , [address], [place], [place], [facility], [place]. tel:[phone] [facility], [address], [place], [place], [id number], [place] tel:[phone] [facility] No Information 5-200 9 [facility] . [address], [address], [place], [place], [id number], . tel:[phone] Referring Provider: Ca Soto, [address], [place], [place], [facility]. tel:[phone] sulting Provider: Dilcia Agarwal, [address] [place] [address], [facility]. tel:[phone] [facility], [address], [place], [place], [id number], [place] tel:[phone] [facility] No Information 0 9-200 9 Jaqueline Miller [address] , [address], [place], [place], [facility], [place]. tel:[phone] [facility], [address], [place], [place], [id number], [place] tel:[phone] [facility] No Information Feb-1 0-200 8 Jaqueline Miller [address] , [address], [place], [address], [place]. tel:[phone] Family History Family Member Type Diagnosis Age At Onset No Information Payers Payer name Insurance type Covered green party ID Authoriza tigallo(s) [place] [id number] Social History Type Description Quantity Date Captured Comments Sex Male Smoking Status No Information Chief Complaint And Reason For Visit No Information Reason For Referral Reason For Referral No Information History Of Present Illness Encounter Date Complaint History Of Prese nt Illness No Information Functional Status Date Functional Assessmen t No Information Instructions Date Instruction Additional Infor mation No Information Assessments Type Assessment Date No Information Patient Care Teams Name Effective Dates (start - stop) Status Members No Information
--- OUTSIDE RECORDS SUMMARY | 2024-10-17 12:01 | XMS_ITS | Patient Health Summary ---
Author Organization [facility] Address [address] [place] [address] Care Team Providers Care Rental Manager Name Role Phone Unavailable Primary Care Provider Unavailabl e Note from [facility],non-owned Affiliates and Associated Physician Practices is amultiple site organization consisting of ambulatory clinics and hospital sitesin [place], [place], [place] and [place]. This disclosure is being madepursuant to the Care Everywhere program and may not contain all information available regarding this patient. Last updated 18.[facility] Social History Tobacco Use Types Packs/Day Years Used Date Smoking Tobacco: Never Assessed Sex and Gender Information Value Date Recorded Sex Assigned at Not on file Gender Identity Not on file Sexual Orientation Not on file Procedures * TROPONIN I(Performed 08/09/2017) Results * TROPONIN I (08/09/2017 11:49 AM POLICE COMMUNICATIONS DISPATCHER) Troponin I <0.015 0.000 - 0.049 ng/mL 08/09/2017 3:13 PM POLICE COMMUNICATIONS DISPATCHER [facility] Blood BLOOD SPECIMEN / Unknown Venipuncture / Unknown 08/09/2017 11:49 AM POLICE COMMUNICATIONS DISPATCHER 08/09/2017 2:27 PM POLICE COMMUNICATIONS DISPATCHER Narrative [facility] - 08/09/2017 3:13 PM POLICE COMMUNICATIONS DISPATCHER Note: Diagnosis of myocardial infarction requires symptoms of ischemia or EKG changes of ischemia and Troponin I >99th of normal (0.05 ng/mL). Troponin should be drawn on initial assessment and 3-6 hours later as clinically indicated. Any condition resulting in myocardial cell damage can increase cardiac troponin levels. In addition to myocardial infarction, these include but are not limited to congestive heart failure (CHF), arrhythmia, myocarditis, and non-cardiac related causes such as pulmonary embolism, renal failure and sepsis. Provider Unknown LAB - CHEMISTRY [place] [id number]
--- OUTSIDE RECORDS SUMMARY | 2024-10-17 12:01 | XMS_ITS | Clinical Summary ---
Author Organization [facility] Address [address] [place] [address] [place] [address] Care Team Providers Care Circulating Nurse Name Role Phone Unavailable Primary Care Provider Unavailabl e Allergies Active Allergy Reactions Criticality Noted Date Comments Sulfa Antibiotics Unknown 07/15/2020 Medications Coenzyme Q10 (CO Q 10) 100 MG Cap CoQ-10 100 mg capsule Take by oral route. Active Multiple Vitamin (MULTIVITAMIN ADULT OR) multivitamin Active hydroCHLOROthia zide 25 MG tablet TAKE 1 TABLET BY MOUTH EVERY DAY 1 Active lisinopril 40 MG tablet TAKE 1 TABLET BY MOUTH EVERY DAY 1 Active metoprolol tartrate 50 MG tablet metoprolol tartrate 50 mg tablet 0 Active rivaroxaban (XARELTO) 20 MG Tab tablet Xarelto 20 mg tablet 0 Active simvastatin 40 MG tabletIndicatio ns:Hyperlipidem ia Take 1 tablet (40 mg total) by mouth nightly at bedtime. at bedtime 90 tablet 1 1 Active testosterone cypionate 200 MG/ML injectionIndica tions:Hypogonad ism in male Inject 0.5 mLs (100 mg total) into the muscle every 14 (fourteen) days. 1 mL 2 1 Active Syringe/Needle, Disp, (SYRINGE 3CC/25GX1 ) 25G X 1 3 ML MiscIndications :Hypogonadism in male Use as directed to inject testosterone every 3 weeks 12 each 1 1 Active NEEDLE, DISP, 23 G 23G X 1-1/2 MiscIndications :Hypogonadism in male Use as directed every 3 weeks to inject testosterone 12 each 1 1 Active METFORMIN ER 500 MG 24 hr tabletIndicatio ns:Diabetes mellitus ([facility]) TAKE 1 TABLET BY MOUTH THREE TIMES A DAY 270 tablet Active Active Problems Problem Noted Date Diagnosed Date Type 2 diabetes mellitus wit h microalbuminuria, without long-term current use of insulin ([facility]) 12/30/2020 Hyperlipidemia associated wi th type 2 diabetes mellitus ([facility]) 12/30/2020 Enthesopathy of hip region 11/26/2020 Hip pain 11/26/2020 Joint replaced by other means 11/26/2020 Osteoarthritis of hip 11/26/2020 Other fatigue 12/25/2018 Erectile dysfunction associa ananda with type 2 diabetes mellitus ([facility]) 12/25/2018 PVD (peripheral vascular disease) 11/04/2017 Subclavian artery stenosis, right 11/04/2017 Hypertension associated with type 2 diabetes mellitus ([facility]) 02/09/2016 Overview (11/26/2020): Essential hypertension alf current use of anticoagulant therapy 0 02/09/2016 Overview (11/26/2020): Current use of fci anticoagulation Obesity with body mass index 30 or greater 02/08 Overview (11/26/2020): Obesity (BMI 30-39.9) Paroxysmal atrial fibrillation ([facility]) 02/09/2016 Overview (11/26/2020): PAF (paroxysmal atrial fibrillation) 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 Overview (11/26/2020): Rheumatic mitral valve disease Mitral valve regurgitation, rheumatic Unknown and unspecified causes of morbidity 03/25 Overview (11/26/2020): STATUS-POST PTCA Coronary arteriosclerosis in [place] artery 02/08 Overview (11/26/2020): CRNRY ATHRSCL NATVE VSSL Lumbago 11/16/2010 Immunizations Name Administration Dates Next Due Fluzone High Dose - >Age 65 (Prefilled Syringe) 07/23/2020 MODERNA COVID-19 (12+) MRNA, LNP-S, PF, 100 MCG/ 0.5 ML DOSE 12/14/2020,11/12/2020 Family History Medical History Relation Comments Cancer Brother Cancer Father No Known Problems Mother Relation Status Comments Brother Father Mother Social History Tobacco Use Types Packs/Day Years Used Date Smoking Tobacco: Former Cigarettes Q uit: 1994 Smokeless Tobacco: Never Alcohol Use Standard Drinks/Week Comments Yes 1.7 (1 standard drink = 0.6 oz p ure alcohol) AUDIT-C Answer Date Recorded Q1: How often do you have a drink containing alc ohol? 2-4 times a month 11/26/2020 Q2: How many drinks containi ng alcohol do you have on a typical day when you are drinking? 1 or 2 11/26/2020 Q3: How often do you have si x or more drinks on one occasion? Never 11/26/2020 PHQ-2 Answer Date Recorded PHQ-2 Score - If the patient scores above 3, please move on to questions 3-9 0 11/26/2020 Sex and Gender Information Value Date Recorded Sex Assigned at Not on file Legal Sex Male 10:52 AM ECOLOGIST TECHNICIAN Gender Identity Not on file Sexual Orientation Not on file Last Filed Vital Signs Vital Sign Reading Time Taken Comments Blood Pressure 114/68 01/11/2021 8:15 AM CDT Pulse 65 01/11/2021 8:15 AM CDT Temperature 36.7 ??C (98 ??F) 01/11/2021 8:15 AM CDT Respiratory Rate 16 01/11/2021 8:15 AM CDT Oxygen Saturation 96% 01/11/2021 8:15 AM CDT Inhaled Oxygen Concentration - - Weight 91.4 kg (201 lb 9.6 oz) 01/11/2021 8:15 A M CDT Height 172.7 cm (5' 8 ) 01/11/2021 8:15 AM CDT Body Mass Index 30.65 01/11/2021 8:15 AM CDT Plan of Treatment Health Maintenance Due Date Last Done Comments ASCVD Statin 1942 Kidney Health Evaluation 1942 Pneumococcal Vaccine: 65+ Years (1 of 2 - PCV) 1948 DTaP, Tdap and Td Vaccines (1 - Tdap) 1961 Zoster Vaccines (1 of 2) 1992 Annual Medicare Wellness Visit 2007 RSV Immunization or 60+ Years (1 - 1-dose 75+ series) 2017 Hemoglobin A1C 06/24/2021 12/23/2020, 06/25, 03/02/2020, Additional history exists ASCVD LDL 12/23/2021 12/23/2020 Lipid Panel 12/23/2021 12/23/2020 Diabetes: Retinopathy Eye Exam 12/30/2022 12/30/2020, 11/21/2020, 04/15/2016, Additional history exists COVID-19 Vaccine ( season) 2024 12/14/2020, 11/12/2020 Influenza Adult (#1) 2024 07/23/2020 Meningococcal Vaccine Aged Out No sydnee padmini eligible based on patient's age to complete this topic RSV Immunizations Under 20 Months Aged Out No longer eligible based on patient's age to complete this topic Procedures Procedure Name Priority Date/Time Associated Diagnosis Comments DIABETIC RETINOPATHY EXAM (NEGATIVE)(SCAN ORDER) Routine 12/30/2020 LIPID PANEL Routine 12/23/2020 7:16 AM CDT Hyperlipidemia associated with type 2 diabetes mellitus ([facility]) HEMOGLOBIN, GLYCOSYLATED Routine 12/23/2020 7:16 AM CDT Type 2 diabetes mellitus without complication, without long-term current use of insulin ([facility]) from Last 3 Months or Most Recently Relevant to Health Maintenance Results * DIABETIC RETINOPATHY EXAM (NEGATIVE)(SCAN) (12/30/2020) us Documents Scanned SCANNING Final Result [facility] * (ABNORMAL) HEMOGLOBIN, GLYCOSYLATED (12/23/2020 7:16 AM CDT) HGB A1C 6.3(H) <5.7 % of total Hgb [facility] Comment: For someone without known diabetes, a hemoglobin A1c value between 5.7% and 6.4% is consistent with prediabetes and should be confirmed with a follow-up test. For someone with known diabetes, a value <7% indicates that their diabetes is well controlled. A1c targets should be individualized based on duration of diabetes, age, comorbid conditions, and other considerations. This assay result is consistent with an increased risk of diabetes. Currently, no consensus exists regarding use of hemoglobin A1c for diagnosis of diabetes for children. 12/23/2020 7:16 AM CDT 12/23/2020 7:17 AM CDT Narrative [facility] - 12/24/2020 1:47 PM CDT FASTING:YES FASTING: YES us Tapan Mccrary DO LABORATORY Final Re sult [facility] [address] [facility] [place] [address] * (ABNORMAL) LIPID PANEL (12/23/2020 7:16 AM CDT) CHOLESTEROL 158 <200 mg/dL [facility] HDL 43 > OR = 40 mg/dL [facility] TRIGLYCERIDES 151(H) <150 mg/dL [facility] LDL (CALCULATED) 90 mg/dL (calc) [facility] Comment: Reference range: <100 Desirable range <100 mg/dL for primary prevention; ?? <70 mg/dL for patients with CHD or diabetic patients with > or = 2 CHD risk factors. LDL-C is now calculated using the Vikas calculation, which is a validated novel method providing better accuracy than the Friedewald equation in the estimation of LDL-C. Fidel SS et al. ISAAC. 2013;310(19): 7835-5702 (http://education.BlueWare.myBarrister/faq/NMT076) CHOL/HDL RATIO 3.7 <5.0 (calc) [facility] NON HDL CHOLESTEROL 115 <130 mg/dL (calc) [facility] Comment: For patients with diabetes plus 1 major ASCVD risk factor, treating to a non-HDL-C goal of <100 mg/dL (LDL-C of <70 mg/dL) is considered a therapeutic option. 12/23/2020 7:16 AM CDT 12/23/2020 7:17 AM CDT Narrative [facility] - 12/24/2020 1:47 PM CDT FASTING:YES FASTING: YES Tapan Mccrary DO LABORATORY Final Re sult [facility] [address] [place] [address] from Last 3 Months or Most Recently Relevant to Health Maintenance Insurance [employer]
--- OUTSIDE RECORDS SUMMARY | 2024-10-17 12:01 | XMS_ITS | Continuity of Care Document ---
Author Organization [facility] Address [address] [place] [address] Phone Care Team Providers Care Outreach Representative Name Role Phone Avtar Thomason MD Unavailable Unavailable Allergies, Adverse Reactions, Alerts Substance Reaction Status Criticality No Known allergies Medications Medication Instructions Dosage Effective Dates (start - stop) Status Comments METFORMIN HCL (unknown strength) Not Available - Active LOSARTAN POTASSIUM (unknown strength) Not Available - Active FENOGLIDE (unknown strength) Not Available - Active SIMVASTATIN (unknown strength) Not Available - Active METOPROLOL TARTRATE (unknown strength) Not Available - Active Procedures Procedure Date MU Reporting Advance Directives Directive Yes / No Effective Date File Name Resuscitation Not Answered N/A N/A Life Support Not Answered N/A N/A Intubation Not Answered N/A N/A Antibiotics Not Answered N/A N/A IV Fluid Support Not Answered N/A N/A Tube Feed Not Answered N/A N/A Other Directive N/A N/A WARNING:The information contained in this section is historical and is provided for information only and does not constitute a legal document or any assurance that the information is still accurate. Please verify the information with the kovacs of the legal document before using it for clinical purposes. Encounters Encounter Description Practice Location Reason(s) For Visit Diagnoses Date Provider Providers Copied on Encounter [facility] , [address], [place], [address], [place] tel:[phone] [facility] right hip pain (chief complaint) Avascular necrosis of hipOverweight Hypertension, Unspecified [address] , [place], [place], [id number] . tel: [phone] Referring Provider: Kylah Ballesteros [facility] [address], [place], [address]. tel:[phone] Family History Family Member Type Diagnosis Age At Onset Problem (finding) Family history of Cance r Payers Payer name Insurance type Covered libertarian ID Pato boland(s) No Information Social History Type Description Quantity Date Captured Comments Alcohol Use Details wine Caffeine Use Details Unknown Tobacco Use Status No Information Smoking Status Former smoker Smoking Tobacco Use Details Cigarette: No Details Available Cigarette: No Details Available Sex Male Vital Signs Date / Time: Height Weight BMI Pulse Rate Blood Pressure Temperature Respiratory Rate Body Surface Area Head Circumference Head Circ. Percentile Wt./Ash. Percentile BMI percentile Pulse Ox Inhaled Ox 8:37 AM 69.00 in 195.00 lbs 28.7 9 kg/m eter (2) 167/84 mm[Hg] Chief Complaint And Reason For Visit From encounter dated '08/27/2012 10:40'. right hip pain (chief complaint) Reason For Referral Reason For Referral No Information History Of Present Illness Encounter Date Complaint History Of Prese nt Illness No Information Functional Status Date Functional Assessmen t No Information Instructions Date Instruction Additional Infor mation Physical activity counseling Rel ated to Overweight Assessments Type Assessment Date No Information Patient Care Teams Name Effective Dates (start - stop) Status Members No Information
--- OUTSIDE RECORDS SUMMARY | 2024-10-17 12:01 | XMS_ITS | Referral Summary ---
Author Organization [place] [address] Address [address] [address] [place] [address] Care Team Providers Care Pastry Chef Name Role Phone Emeka Gunderson MD Primary Care Provider Encounters Date Type Department Care Team Description 09/04/2024 Telephone [facility] [address] [place] [address] [address] [place] [address] Magda Solorzano MD 08/29/2024 8:15 AM CURING OVEN TENDER Office Visit [facility] [address] [place] [address] [address] [place] [address] Magda Solorzano MD Coronary artery disease involving [place] coronary artery of [place] heart without angina pectoris (Primary Dx); Permanent atrial fibrillation (CMS/HCC) (HCC); Subclavian artery stenosis, right (CMS/HCC) (HCC); PVD (peripheral vascular disease) (HCC); Essential hypertension; Chronic anticoagulation; Hyperlipidemia associated with type 2 diabetes mellitus (HCC); History of coronary artery stent placement; Atherosclerosis of [place] coronary artery without angina pectoris, unspecified whether [place] or transplanted heart; Peripheral vascular disease, unspecified (HCC); Stricture, artery (CMS/HCC) (HCC); supervisor intermediates current use of anticoagulant therapy; Presence of coronary angioplasty implant and graft; Type 2 diabetes mellitus with other specified complication, unspecified whether supervisor intermediates insulin use (HCC); Essential (primary) hypertension 08/12/2024 Orders Only [facility] [address] [place] [address] Jenna Jarquin MA 08/09/2024 Telephone [facility] [address] [place] [address] Magda Solorzano MD Med Refill from Last 3 Months Allergies Active Allergy Reactions Criticality Noted Date [...] (LIPITOR) 40 mg tabletIndications:Co ronary arteriosclerosis in [place] artery,Multiple-type hyperlipidemia TAKE 1 TABLET BY MOUTH [...] unit tablet,chewable Take by mouth Active om [id number] phytost 500 mg-500 mcg -1 mg-12.5 mg capsule Take by mouth Active aspirin 81 mg chewable tablet Take 1 tablet (81 mg total) by mouth daily 90 tablet 1 09/04/20 24 Active Active Problems Problem Noted Date Diagnosed Date Other male erectile dysfunction 12/25/2018 Other fatigue 12/25/2018 Subclavian artery stenosis, right ([facility]) 10/26 PVD (peripheral vascular disease) 11/04/2017 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 Overview (12/28/2016): Mitral valve regurgitation, rheumatic Obesity with body mass index 30 or greater 02/08 Overview (12/28/2016): Obesity (BMI 30-39.9) Essential hypertension 02/09/2016 Overview (12/28/2016): Essential hypertension Chronic anticoagulation 02/09/2016 Overview (12/30/2016): Current use of supervisor intermediates anticoagulation Permanent atrial fibrillation ([facility]) 02/09/20 16 Overview (12/30/2016): PAF (paroxysmal atrial fibrillation) History of coronary artery stent placement 04/08 Overview (12/30/2016): STATUS-POST PTCA Coronary artery disease invo lving [place] coronary artery of [place] heart without angina pectoris 02/08/2014 Overview (12/30/2016): [...] (CMS/HCC) 06/10/2013 07/15/2020 Overview (12/30/2016): ATRIAL FIBRILLATION Social History Tobacco Use Types Packs/Day Years Used Date Smoking Tobacco: Former Cigarettes Q uit: 09/25/1989 Tobacco Cessation:Counseling Given: Not Answered Alcohol Use Standard Drinks/Week Comments Yes 0 (1 standard drink = 0.6 oz pur e alcohol) Sex and Gender Information Value Date Recorded Sex Assigned at Not on file Legal Sex Male 9:16 AM CURING OVEN TENDER Gender Identity Not on file Sexual Orientation Not on file Last Filed Vital Signs Vital Sign Reading Time Taken Comments Blood Pressure 132/74 08/29/2024 8:19 AM CURING OVEN TENDER Pulse 75 08/29/2024 8:19 AM CURING OVEN TENDER Temperature - - Respiratory Rate - - Oxygen Saturation 97% 08/29/2024 8:19 AM CURING OVEN TENDER Inhaled Oxygen Concentration - - Weight 75.8 kg (167 lb) 08/29/2024 8:19 AM CURING OVEN TENDER Height 175.3 cm (5' 9 ) 08/29/2024 8:19 AM CURING OVEN TENDER Body Mass Index 24.66 08/29/2024 8:19 AM CURING OVEN TENDER Plan of Treatment Not on file Procedures Procedure Name Priority Date/Time Associated Diagnosis Comments POCT LIPID PANEL Routine 08/21/2023 9:21 AM CURING OVEN TENDER Hyperlipidemia associated with type 2 diabetes mellitus (HCC) from Last 3 Months or Most Recently Relevant to Health Maintenance Results * POCT lipid panel (08/21/2023 9:21 AM CURING OVEN TENDER) Cholesterol, POC 103 mg/dL HDL, POC 37 mg/dL Triglycerides, POC 124 mg/dL LDL Cholesterol POC 41 mg/dL Chol/HDL Ratio, POC 1.1 Non-HDL Cholesterol, POC 66 mg/dL Cholesterol Total, POC 103 mg/dL Capillary blood 08/21/2023 9 :21 AM CURING OVEN TENDER Kathryn Allen MD POINT OF CARE TEST ORDERABL ES Final Result from Last 3 Months or Most Recently Relevant to Health Maintenance Insurance [facility] Care Teams Pastry Chef Relationship Specialty Start Date End Date Emeka Gunderson MD [address] [place], [place] [id number] PCP - General Family Medicine 09/24/24
--- OUTSIDE RECORDS SUMMARY | 2024-10-17 12:01 | XMS_ITS | Encounter Summary ---
Author Organization [facility] Address [address] [place] [address] Care Team Providers Care Cellophane Wrapping Examiner Name Role Phone Ronni Schultz MD Primary Care Provider [phone] Emeka Gunderson MD Primary Care Provider + [phone] Emeka Gunderson MD Primary Care Provider + [phone] Encounter Details Date Type Department Care Team (Late st Contact Info) Description 09/15/2016 Orders Only [facility] ProviderDa MD [address] [place] [address] Social History Tobacco Use Types Packs/Day Years Used Date Smoking Tobacco: Former Cigarettes Q uit: 09/25/1989 Alcohol Use Standard Drinks/Week Comments Yes 0 (1 standard drink = 0.6 oz pur e alcohol) Sex and Gender Information Value Date Recorded Sex Assigned at Not on file Legal Sex Male 9:16 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 Historical Provider [facility] Final Result * CARDIOLOGY REPORT (09/15/2016) Anatomical Region Laterality Modality Other Narrative 09/15/2016 Ordered by an unspecified provider. us Historical Provider [facility] Final Result documented in this encounter Visit Diagnoses Not on filedocumented in this encounter Care Teams Cellophane Wrapping Examiner Relationship Specialty Start Date End Date Ronni Schultz MD [address] [place] [address] PCP - General 11/23/10 07/18/21 Emeka Gunderson MD [address] [place] [address] PCP - General Family Medicine 07/19/21 09/23/24 Emeka Gunderson MD [address] [place] [address] PCP - General Family Medicine 09/24/24 documented as of this encounter
--- OUTSIDE RECORDS SUMMARY | 2024-10-17 12:01 | XMS_ITS | Clinical Summary ---
Author Organization [facility] Address [address] [facility] [place] [address] Care Team Providers Care Dumpster Driver Name Role Phone Unavailable Primary Care Provider Unavailabl e Source Comments [facility],non-owned Affiliates and Associated Physician Practices is amultiple site organization consisting of ambulatory clinics and hospital sitesin [place], [place], [place] and [place]. This disclosure is being madepursuant to the Care Everywhere program and may not contain all information available regarding this patient. Last updated 18.[facility] Social History Tobacco Use Types Packs/Day Years Used Date Smoking Tobacco: Never Assessed Sex and Gender Information Value Date Recorded Sex Assigned at Not on file Gender Identity Not on file Sexual Orientation Not on file Plan of Treatment Health Maintenance Due Date Last Done Comments DTAP/TDAP/TD VACCINES (1 - Tdap) 1961 PNEUMOCOCCAL VACCINE 50+ (1 of 1 - PCV) 1992 ZOSTER VACCINE (1 of 2) 1992 Respiratory Syncytial Virus (RSV) Vaccine Pt: or over 60 yrs (1 - 1-dose 75+ series) 2017 COVID-19 VACCINE ( - 2023-2 5 season) 2024 INFLUENZA VACCINE (#1) 2024 DEPRESSION SCREENING 09/25/2024 HEPATITIS B VACCINE Aged Out No longe r eligible based on patient's age to complete this topic HIB VACCINE Aged Out No longer eligi ble based on patient's age to complete this topic HPV VACCINE Aged Out No longer eligi ble based on patient's age to complete this topic MENINGOCOCCAL (Group B) VACCINE Aged Out No longer eligible based on patient's age to complete this topic MENINGOCOCCAL VACCINE Aged Out No sydnee padmini eligible based on patient's age to complete this topic
--- OUTSIDE RECORDS SUMMARY | 2024-10-17 12:01 | XMS_ITS | Clinical Summary ---
Author Organization [facility] Address [address] 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
--- OUTSIDE RECORDS SUMMARY | 2024-10-17 12:01 | XMS_ITS | Encounter Summary ---
Author Organization [employer] Address 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 José Manuel Ayala MD [address] [place] [address] Coronary Atherosclerosis of [place] Coronary Artery (Primary Dx) Social History Tobacco Use Types Packs/Day Years Used Date Smoking Tobacco: Never Assessed Sex and Gender Information Value Date Recorded Sex Assigned at Not on file Legal Sex Male 3:11 AM MBA INTER[employer] Gender Identity Not on file Sexual Orientation Not on file documented as of this encounter Plan of Treatment Not on file documented as of this encounter Procedures Procedure Name Priority Date/Time Associated Diagnosis Comments CBC WITH DIFFERENTIAL Routine 06/19/2006 9:31 PM CDT CBC WITH DIFFERENTIAL Routine 06/19/2006 9:31 PM CDT POC ACTIVATED CLOTTING TIME Routine 06/19/2006 9:31 PM CDT POC ACTIVATED CLOTTING TIME Routine 06/19/2006 7:48 PM CDT POC ACTIVATED CLOTTING TIME Routine 06/19/2006 7:00 PM CDT POC ACTIVATED CLOTTING TIME Routine 06/19/2006 6:43 PM CDT documented in this encounter Results * POC ACTIVATED CLOTTING TIME (06/19/2006 9:31 PM CDT) [facility] ACT POC 109 Seconds INTERFACE SYSTEM Comment: Note sheath pull range change effective 03/17/2006. ACT value for sheath pull at [facility] has been established to be < or = to 1 40. ??(See also Nursing Procedures for sheath pull in related nursing areas) 06/19/2006 9:31 PM CDT José Manuel Ayala MD POINT OF CARE TESTING Final Result Performing Organization Address [facility] de Phone Number INTERFACE SYSTEM Refer to clinic/hospital department * CBC WITH DIFFERENTIAL (06/19/2006 9:31 PM CDT) Pathologist [facility] NEUTROPHILS 50 45 - 70 % INTERFAC E SYSTEM LYMPHOCYTES 36 16 - 45 % INTERFAC E SYSTEM MONOCYTES 10 3 - 13 % INTERFACE SYSTEM EOSINOPHILS 4 0 - 7 % INTERFAC E SYSTEM BASOPHILS 1 0 - 2 % INTERFACE SYSTEM NEUTROPHIL ABSOLUTE 2.18 1.90 - 7.00 K/uL INTERFACE SYSTEM LYMPHOCYTE ABSOLUTE 1.58 0.70 - 4.50 K/uL INTERFACE SYSTEM MONOCYTE ABSOLUTE 0.43 0.10 - 1.30 K/uL INTERFACE SYSTEM EOSINOPHIL ABSOLUTE 0.16 0.00 - 0.70 K/uL INTERFACE SYSTEM BASOPHILS ABSOLUTE 0.02 0.00 - 0.20 K/uL INTERFACE SYSTEM 06/19/2006 9:31 PM CDT José Manuel Ayala MD HEMATOLOGY ORDERABLES Final Result Performing Organization Address [facility] de Phone Number INTERFACE SYSTEM Refer to clinic/hospital department * (ABNORMAL) CBC WITH DIFFERENTIAL (06/19/2006 9:31 PM CDT) Pathologist [facility] WBC 4.4 4.0 - 9.8 K/uL INTERFACE SYSTEM RBC 4.28(L) 4.50 - 5.40 M/uL INTERFACE SYSTEM HEMOGLOBIN 13.7 13.6 - 16.5 g/dL INTERFACE SYSTEM HEMATOCRIT 37.9(L) 40.0 - 48.0 % INTERFACE SYSTEM MCV 88.6 82.0 - 99.0 fL INTERFACE SYSTEM MCH 32.0 27.2 - 32.6 pg INTERFACE SYSTEM MCHC 36.1(H) 31.5 - 35.5 % INTERFACE SYSTEM RDW 13.0 11.5 - 14.5 % INTERFACE SYSTEM RDW-STDEV 41.5 37.1 - 48.7 fL INTERFACE SYSTEM PLATELETS 125(L) 140 - 350 K/uL INTERFACE SYSTEM MPV 10.5 9.3 - 12.4 fL INTERFACE SYSTEM 06/19/2006 9:31 PM CDT us José Manuel Ayala MD HEMATOLOGY ORDERABLES Final Result Performing Organization Address [facility] Phone Number INTERFACE SYSTEM Refer to clinic/hospital department * POC ACTIVATED CLOTTING TIME (06/19/2006 7:48 PM CDT) ACT POC 153 Seconds INTERFACE SYSTEM Comment: Note sheath pull range change effective 03/17/2006. ACT value for sheath pull at [facility] has been established to be < or = to 1 40. ??(See also Nursing Procedures for sheath pull in related nursing areas) 06/19/2006 7:48 PM CDT us José Manuel Ayala MD POINT OF CARE TESTING Final Result Performing Organization Address [facility] Phone Number INTERFACE SYSTEM Refer to clinic/hospital department * POC ACTIVATED CLOTTING TIME (06/19/2006 7:00 PM CDT) ACT POC 126 Seconds INTERFACE SYSTEM Comment: Note sheath pull range change effective 03/17/2006. ACT value for sheath pull at [facility] has been established to be < or = to 1 40. ??(See also Nursing Procedures for sheath pull in related nursing areas) 06/19/2006 7:00 PM CDT us José Manuel Ayala MD POINT OF CARE TESTING Final Result Performing Organization Address [facility] Phone Number INTERFACE SYSTEM Refer to clinic/hospital department * POC ACTIVATED CLOTTING TIME (06/19/2006 6:43 PM CDT) ACT POC 109 Seconds INTERFACE SYSTEM Comment: Note sheath pull range change effective 03/17/2006. ACT value for sheath pull at [facility] has been established to be < or = to 1 40. ??(See also Nursing Procedures for sheath pull in related nursing areas) 06/19/2006 6:43 PM CDT us José Manuel Ayala MD POINT OF CARE TESTING Final Result INTERFACE SYSTEM Refer to clinic/hospital department documented in this encounter Visit Diagnoses Diagnosis Coronary atherosclerosis of [place] coronary artery- Primary documented in this encounter
--- OUTSIDE RECORDS SUMMARY | 2024-10-17 12:01 | XMS_ITS | Encounter Summary ---
Author Organization [employer] Address [address] [place] [address] Care Team Providers Care Gas Manager Name Role Phone Unavailable Primary Care Provider Unavailabl e Encounter Details Date Type Department Care Team (Late st Contact Info) Description 06/19/2006 Outpatient Historical [facility] ([facility]) [address] 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
--- OUTSIDE RECORDS SUMMARY | 2024-10-17 12:01 | XMS_ITS | Encounter Summary ---
Author Organization [facility] Address [address] [place] [address] Care Team Providers Care Kayak Maker Name Role Phone Unavailable Primary Care Provider Unavailabl e Encounter Details Date Type Department Care Team (Late st Contact Info) Description 08/09/2017 Lab Requisition [facility] [address] [place] [address] Unknown, Provider Social History Tobacco Use Types Packs/Day Years Used Date Smoking Tobacco: Never Assessed Sex and Gender Information Value Date Recorded Sex Assigned at Not on file Gender Identity Not on file Sexual Orientation Not on file documented as of this encounter Plan of Treatment Not on file documented as of this encounter Procedures Procedure Name Priority Date/Time Associated Diagnosis Comments TROPONIN I Routine 08/09/2017 11:49 AM OSS ARCHITECT documented in this encounter Results * TROPONIN I (08/09/2017 11:49 AM OSS ARCHITECT) Troponin I <0.015 0.000 - 0.049 ng/mL 08/09/2017 3:13 PM OSS ARCHITECT [facility] Blood BLOOD SPECIMEN / Unknown Venipuncture / Unknown 08/09/2017 11:49 AM OSS ARCHITECT 08/09/2017 2:27 PM OSS ARCHITECT Narrative [facility] - 08/09/2017 3:13 PM OSS ARCHITECT Note: Diagnosis of myocardial infarction requires symptoms [...] and sepsis. Provider Unknown LAB - CHEMISTRY [facility]RIE [facility] [address] [place], [place] [id number] documented in this encounter Visit Diagnoses Not on filedocumented in this encounter
== END 2024-10-14 10:00 ==
PROVIDERS: Emergency Provider Emergency Medicine; PCP Family Medicine
DX: S00.03XA Contusion of scalp, initial encounter (principal); F03.90 Unspecified dementia, unspecified severity, without behavioral disturbance, psychotic disturbance, mood disturbance, and anxiety; I10 Essential (primary) hypertension; E11.9 Type 2 diabetes mellitus without complications; E78.5 Hyperlipidemia, unspecified; Z66 Do not resuscitate; Z87.891 Personal history of nicotine dependence; Z79.01 Long term (current) use of anticoagulants; Z79.84 Long term (current) use of oral hypoglycemic drugs; Z79.899 Other long term (current) drug therapy; W19.XXXA Unspecified fall, initial encounter
CPT/HCPCS: 70450; 72125; 99284